=== PATIENT | male | born 1955 | race Hispanic/Latino ===

== ENCOUNTER 2017-06-13 17:58 | Inpatient (IN) | payer MEDICARE ==
[2017-06-13 18:09] VITALS: BMI 22.0
--- NOTE | 2017-06-13 18:22 | ED PDOC ---
Arrival/HPI - General Time Seen by Provider: 06/13/17 18:05 Historian: Patient - History of Present Illness Narrative History of Present Illness (Text): 06/13/17 18:20 A 61 year old male, whose past medical history includes coronary artery disease with history of UT, history of smoking, history of AAA, visiting from [place], presents to the emergency department complaining of hematuria and chest pain. Patient reports blood in urine that developed yesterday and burning sensation, urinary frequency since today. States bloody urine has become more pronounced and at times has difficulty voiding fully. Reports lower abdominal pain, worse when attempting to urinate. Denies hematemesis. Denies melena or dark or bloody stool. Denies testicular pain or swelling. States he developed chest pain with exertion today, radiating down left arm and associated with some shortness of breath. Pain now resolved in chest. Denies acute upper or lower back pain. Denies numbness or tingling to arms or legs. Time/Duration: 24 hours Symptom Onset: Sudden Symptom Course: Unchanged, Resolved Activities at Onset: Rest Context: Home Past Medical History - Provider Review Nursing Documentation Reviewed: Yes Family/Social History - Physician Review Nursing Documentation Reviewed: Yes Family/Social History: No Known Family HX Allergies/Home Meds Allergies/Adverse Reactions: Allergies No Known Allergies Allergy (Verified 06/13/17 18:09) Home Medications: Home Meds Medication Instructions Recorded Confirmed Acetaminophen/Oxycodone Hydr 1 tab PO Q8H PRN 06/13/17 06/13/17 [Percocet 10/325 mg Tab] Alprazolam [Xanax] 0.5 mg PO TID PRN 06/13/17 06/13/17 Clopidogrel [Plavix] 75 mg PO DAILY 06/13/17 06/13/17 Lisinopril [Zestril] 10 mg PO DAILY 06/13/17 06/13/17 Metoprolol Succinate 50 mg PO DAILY 06/13/17 06/13/17 Oxymorphone HCl [Opana ER] 20 mg PO Q12H 06/13/17 06/13/17 Pregabalin [Lyrica] 150 mg PO BID 06/13/17 06/13/17 Simvastatin 80 mg PO HS 06/13/17 06/13/17 Review of Systems - Physician Review All systems were reviewed & negative as marked: Yes - Review of Systems Constitutional: absent: Fevers Eyes: absent: Vision Changes ENT: absent: Hearing Changes, Sore Throat, Rhinorrhea Respiratory: SOB, Cough. absent: Wheezing Cardiovascular: Chest Pain (currently resolved), JOHN. absent: Calf Pain Gastrointestinal: Abdominal Pain. absent: Hematochezia, Hematemesis Genitourinary Male: Dysuria, Frequency, Hematuria, Urinary Output Changes Musculoskeletal: Neck Pain Neurological: absent: Headache, Dizziness, Focal Weakness Endocrine: absent: Polyuria Hemo/Lymphatic: absent: Easy Bleeding Psychiatric: absent: Depression, Suicidal Ideation Physical Exam - Physical Exam Narrative Physical Exam (Text): 06/13/17 18:19 Head: Atraumatic. Normocephalic. Eyes: PERRL. EOMI. Conjunctivae are not pale. ENT: Mucous membranes are moist and intact. Oropharynx is clear and symmetric. Neck: Supple. Full ROM. No JVD. No lymphadenopathy. Cardiovascular: Regular rate. Regular rhythm. Systolic murmur. Distal pulses are 2+ and symmetric. Pulmonary/Chest: No evidence of respiratory distress. Clear to auscultation bilaterally. No wheezing, rales or rhonchi. Abdominal: Soft with mild suprapubic distension. No pulsatile masses. No focal rebound or guarding. Strong and equal femoral pulses bilaterally. Back: No CVA tenderness. Mild paraspinal tenderness. Extremities: No edema. No cyanosis. No clubbing. Full range of motion in all extremities. No calf tenderness. Genitourinary: no penile lesions, no testicular pain or swelling. Rectal: no gross bleeding Skin: Skin is warm and dry. No petechiae. No purpura. Neurological: Alert, awake, and oriented to person, place, time, and situation. Normal speech. Motor and sensory exam intact. Psychiatric: Good eye contact. Normal interaction, affect, and behavior. Patient smells of smoke. Vital Signs Reviewed: Yes Vital Signs Temp Pulse Resp BP Pulse Ox 06/13/17 22:00 84 16 124/72 99 06/13/17 20:00 98.4 F 88 18 128/64 99 06/13/17 18:15 98.0 F 06/13/17 18:10 97 H 19 122/56 L 96 Pulse: Regular Respiratory Rate: Normal Appearance: Positive for: Well-Appearing, Non-Toxic, Uncomfortable Pain Distress: Mild Mental Status: Positive for: Alert and Oriented X 3 Medical Decision Making ED Course and Treatment: 06/13/17 18:18 Impression: A 61 year old male with hematuria and chest pain. Differential Diagnosis included but are not limited to: UTI vs. urinary retention vs. UT vs. kidney stones Plan: -- EKG -- chest xray -- CT abd/pelvis -- labs -- Urinalysis -- Reassess and disposition Progress Notes: Patient has no prior past records available at [facility]. Patient states he is visiting family and his physician are in [place]. He reports that has prior history of "heart attacks" as well as history of chronic neck and back pain, and also states history of a AAA repair several years ago. On initial exam, he states chest pain has resolved. He is not tachycardic or hypotensive. No pulsatile masses noted on abdominal exam, although mild suprapubic pain noted. His urine is grossly bloody, he reports incomplete voiding. CT abdomen/ ordered to assess ? renal colic, cystitis, pyelonephritis. He is afebrile, initial lactate on WBC unremarkable. His chest pain has resolved. At this time awaiting CT results. Will at this time admit to telemetry for chest pain, cardiac history. Patient with no PMD here at [facility], will admit to hospitalist service. CT Abdomen and Pelvis Without Intravenous Contrast IMPRESSION: 1. There is fullness of the left renal collecting system/mild hydronephrosis. There is distal left hydroureter. No obstructing ureteral calculus is identified. There is mild prominence of the distal right ureter. 2. There is abnormal density within the bladder, concerning for hemorrhage or mass. There is stranding of the soft tissue surrounding the bladder, suggestive of cystitis. Further clinical evaluation is recommended. 3. The prostate is enlarged. 4. There is aneurysmal dilatation of the abdominal aorta and bilateral common iliac arteries. An aortobiiliac stent graft is identified. 5. Hypodense left adrenal nodules are identified, suggestive of adenomas. Hypodense right adrenal nodules are also visualized. 6. A calcification is identified at the base of the penis, which appears to be superior to the corpus spongiosum/ureter. 7. Hepatomegaly. 8. Nodular consolidations are identified within the right lung base. These findings are suggestive of rounded atelectasis, although additional pathology cannot be excluded. There is right pleural thickening. Correlation with prior studies is recommended, with follow-up CT imaging. 9. Incidental/non-acute findings are described above. Dictated and Authenticated by: Izaiah Van MD 06/13/2017 9:26 PM Eastern Time ([place] & [place]) Given CT findings, cannot exclude bladder mass or hemorrhage, ddx includes cystitis, bladder disease/infection. Remains cv stable at this time, blood pressure stable. Afebrile. Lactate unremarkable initially. Suspect also component of prostate disease. 06/13/17 22:04 Symptoms and presentation and abnormal CT findings were discussed with Dr. Chip Pierre, covering for listed on-call urologist. He will evaluate patient during admission. - Lab Interpretations Microbiology Results: Microbiology Results 06/13/17 19:50 Blood Blood Culture - Final NO GROWTH AFTER 5 DAYS 06/13/17 19:50 Blood Gram Stain - Final TEST NOT PERFORMED 06/13/17 20:17 Urine Urine Culture - Final <10,000 CFU/ML. MULTIPLE SPECIES. PROBABLE CONTAMINATION. Lab Results: 06/13/17 18:30 06/13/17 18:30 Lab Results 06/13/17 20:17: Urine Color Red, Urine Appearance Turbid, Urine pH 6.5, Ur Specific [place] 1.025, Urine Protein >=300 H, Urine Glucose (UA) Negative, Urine Ketones Negative, Urine Blood Large H, Urine Nitrate Positive H, Urine Bilirubin Negative, Urine Urobilinogen 1.0 H, Ur Leukocyte Esterase Moderate H, Urine RBC Tntc, Urine WBC 0 - 2, Ur Epithelial Cells 3 - 4 06/13/17 19:56: pO2 56 H, VBG pH 7.37, VBG pCO2 50.0, VBG HCO3 28.9 H, VBG Total CO2 30.4 H, VBG O2 Sat (Calc) 92.5 H, VBG Base Excess 2.7 H, VBG Potassium 3.6, Glucose 110, Lactate 0.8, FiO2 21.0, Sodium 138.0, Chloride 104.0 , Venous Blood Potassium 3.6 06/13/17 19:00: PT 14.2 H, INR 1.30 H, APTT 35.5 06/13/17 18:30: Hemoglobin A1c 6.0 06/13/17 18:30: Triglycerides 108, Cholesterol 108 L, LDL Cholesterol Direct 56 , HDL Cholesterol 35 06/13/17 18:30: Sodium 140, Potassium 3.8, Chloride 104, Carbon Dioxide 26, Anion Gap 14, BUN 11, Creatinine 0.8, Est GFR ( Amer) > 60, Est GFR (Non- Af Amer) > 60, Random Glucose 125 H, Calcium 9.2, Total Bilirubin 0.7, AST 22, ALT 24, Alkaline Phosphatase 85, Lactate Dehydrogenase 370, Total Creatine Kinase 47, Troponin I < 0.01, Total Protein 7.1, Albumin 4.0, Globulin 3.1, Albumin/Globulin Ratio 1.3 06/13/17 18:30: WBC 10.8, RBC 4.23, Hgb 14.1, Hct 40.8 L, MCV 96.5, MCH 33.3, MCHC 34.6, RDW 15.8 H, Plt Count 305, MPV 9.4, Gran % 78.1 H, Lymph % (Auto) 10.9 L, [place] % (Auto) 10.3 H, Eos % (Auto) 0.5 L, Baso % (Auto) 0.2, Gran # 8.46 H, Lymph # 1.2, [place] # 1.1 H, Eos # 0.1, Baso # 0.02 I have reviewed the lab results: Yes - RAD Interpretation Radiology Orders: 06/13/17 18:16 ABD & PELVIS W/O PO OR IV CONT [CT] Stat CHEST PORTABLE [RAD] Stat - EKG Interpretation Interpreted by ED Physician: Yes Type: 12 lead EKG - Medication Orders Current Medication Orders: Alprazolam (Xanax) 0.5 mg PO TID PRN; Protocol PRN Reason: Anxiety Last Admin: 06/16/17 09:16 Dose: 0.5 mg Behavioural Document 06/16/17 09:16 JFSelma (Rec: 06/16/17 09:16 ADNREIA [id number]) Maintenance Maintenance Dose No Nonmedicinal Nonmedicinal Interventions Therapeutic Communication Behavior Behavior for Medication: Anxiety Re-Assess: Reassess Psych Meds Document 06/16/17 10:16 JFSelma (Rec: 06/16/17 10:55 JFR [id number]) Reassess Psych Med Effective Diphenhydramine HCl (Benadryl) 50 mg IVP Q4H PRN PRN Reason: Anxiety Last Admin: 06/20/17 04:35 Dose: 50 mg IVP Administration Document 06/20/17 04:35 KOPPS (Rec: 06/20/17 04:36 KOPPS [place] [id number]) Charges for Administration # of IVP Administrations 1 Hydromorphone HCl (Dilaudid) 2 mg IVP Q4H PRN PRN Reason: Pain, severe (8-10) Stop: 06/22/17 07:09 Last Admin: 06/20/17 10:24 Dose: 2 mg MAR Pain Assessment Document 06/20/17 10:24 DC (Rec: 06/20/17 10:24 DC [place] [id number]) Pain Reassessment Is this a pain reassessment? Yes Presence of Pain Presence of Pain Yes Pain Scale Used Pain Scale Used Numeric Description Pain not relieved and LIP/MD was Yes: as per dr Hubbard, give notified dose early IVP Administration Document 06/20/17 10:24 DC (Rec: 06/20/17 10:24 DC [place] [id number]) Charges for Administration # of IVP Administrations 1 Ceftriaxone Sodium (Rocephin 1 Gram Ivpb) 1 gm in 100 mls @ 100 mls/hr IVPB DAILY KYLE PRN Reason: Protocol Last Admin: 06/20/17 09:34 Dose: 100 mls/hr eMAR Start Stop Document 06/20/17 09:34 DC (Rec: 06/20/17 09:34 DC [id number]) Intravenous Solution Start Date 06/20/17 Start Time 09:34 Sodium Chloride (Sodium Chloride 0.9%) 1,000 mls @ 100 mls/hr IV .Q10H KYLE Last Admin: 06/20/17 08:40 Dose: 100 mls/hr eMAR Start Stop Document 06/20/17 08:40 KOPPS (Rec: 06/20/17 08:41 KOPPS [id number]) Intravenous Solution Start Date 06/20/17 Start Time 03:00 Lidocaine HCl (Xylocaine 2%) 0 ea TOP Q4H PRN PRN Reason: BLEEDING/PAIN Last Admin: 06/17/17 05:24 Dose: 1 applic Lisinopril (Zestril) 10 mg PO DAILY KYLE Last Admin: 06/20/17 09:33 Dose: 10 mg Metoprolol Succinate (Toprol Xl) 50 mg PO DAILY [facility] Last Admin: 06/20/17 09:33 Dose: 50 mg [facility] Pulse and Blood Pressure Document 06/20/17 09:33 DC (Rec: 06/20/17 09:34 [id number]) Blood Pressure Blood Pressure (100/60-150/90) 130/84 Ondansetron HCl (Zofran Inj) 4 mg IVP ONCE PRN PRN Reason: Nausea/Vomiting Oxycodone HCl (Oxycontin Extended Release Tab) 20 mg PO Q12 [facility] Last Admin: 06/19/17 21:02 Dose: 20 mg MAR Pain Assessment Document 06/19/17 21:02 KOPPS (Rec: 06/19/17 21:02 KOPPS [id number]) Pain Reassessment Is this a pain reassessment? No Sleep Is patient sleeping during reassessment? No Presence of Pain Presence of Pain Yes Pain Scale Used Pain Scale Used Numeric Location Left, Right or Bilateral Bilateral Upper or Lower Lower Pain Location Body Site Groin Back Sacrum Description Description Constant Intensity of Pain at present 7 Acceptable Level of Pain 4 Variations/Patterns on and off Pain Behavior Moaning Restlessness Facial Grimacing Screaming Alleviating Factors/Management Medication Techniques Alleviating Factors Medication Re-Assess: [facility] Pain Assessment Document 06/19/17 22:02 KOPPS (Rec: 06/20/17 01:34 KOPPS [id number]) Pain Reassessment Is this a pain reassessment? Yes Sleep Is patient sleeping during reassessment? No Presence of Pain Presence of Pain No Pain Scale Used Pain Scale Used Numeric Pantoprazole Sodium (Protonix Inj) 40 mg IVP DAILY [facility] Last Admin: 06/20/17 09:34 Dose: 40 mg IVP Administration Document 06/20/17 09:34 DC (Rec: 06/20/17 09:34 [id number]) Charges for Administration # of IVP Administrations 1 Phenazopyridine HCl (Pyridium) 200 mg PO PC [facility] Last Admin: 06/20/17 09:34 Dose: 200 mg Polyethylene Glycol (Miralax) 17 gm PO DAILY [facility] Last Admin: 06/20/17 09:34 Dose: 17 gm Pregabalin (Lyrica) 150 mg PO BID [facility] Last Admin: 06/20/17 09:34 Dose: 150 mg Tamsulosin HCl (Flomax) 0.4 mg PO DAILY [facility] Last Admin: 06/20/17 09:34 Dose: 0.4 mg Discontinued Medications Atorvastatin Calcium (Lipitor) 80 mg PO HS [facility] Last Admin: 06/14/17 21:13 Dose: 80 mg Diphenhydramine HCl (Benadryl) 50 mg IVP Q4H PRN PRN Reason: Allergy symptoms Last Admin: 06/16/17 09:15 Dose: 50 mg IVP Administration Document 06/16/17 09:15 JFR (Rec: 06/16/17 09:15 JFR [id number]) Charges for Administration # of IVP Administrations 1 Hydromorphone HCl (Dilaudid) 1 mg IVP STAT STA Stop: 06/14/17 01:33 Last Admin: 06/14/17 01:51 Dose: 1 mg MAR Pain Assessment Document 06/14/17 01:51 SRE (Rec: 06/14/17 01:51 SRE [id number]) Pain Reassessment Is this a pain reassessment? No Sleep Is patient sleeping during reassessment? No Presence of Pain Presence of Pain Yes Pain Scale Used Pain Scale Used Numeric Description Description Burning Intensity of Pain at present 10 IVP Administration Document 06/14/17 01:51 SRE (Rec: 06/14/17 01:51 SRE [id number]) Charges for Administration # of IVP Administrations 1 Re-Assess: MAR Pain Assessment Document 06/14/17 02:51 SRE (Rec: 06/14/17 03:46 SRE [id number]) Pain Reassessment Is this a pain reassessment? Yes Sleep Is patient sleeping during reassessment? No Presence of Pain Presence of Pain Yes Pain Scale Used Pain Scale Used Numeric Description Intensity of Pain at present 8 Pain Behavior Moaning Hydromorphone HCl (Dilaudid) 1 mg IVP STAT STA Stop: 06/14/17 04:34 Last Admin: 06/14/17 04:43 Dose: 1 mg MAR Pain Assessment Document 06/14/17 04:43 SRE (Rec: 06/14/17 04:43 SRE [id number]) Pain Reassessment Is this a pain reassessment? No Sleep Is patient sleeping during reassessment? No Presence of Pain Presence of Pain Yes Pain Scale Used Pain Scale Used Numeric Description Description Burning Intensity of Pain at present 8 IVP Administration Document 06/14/17 04:43 SRE (Rec: 06/14/17 04:43 SRE [id number]) Charges for Administration # of IVP Administrations 1 Hydromorphone HCl (Dilaudid) 4 mg IVP ONCE ONE Stop: 06/14/17 06:15 Last Admin: 06/14/17 06:22 Dose: 4 mg MAR Pain Assessment Document 06/14/17 06:22 SRE (Rec: 06/14/17 06:23 SRE [place] [id number]) Pain Reassessment Is this a pain reassessment? No Sleep Is patient sleeping during reassessment? No Presence of Pain Presence of Pain Yes IVP Administration Document 06/14/17 06:22 SRE (Rec: 06/14/17 06:23 SRE [place] [id number]) Charges for Administration # of IVP Administrations 1 Hydromorphone HCl (Dilaudid) 1 mg IVP Q4H PRN PRN Reason: Pain, severe (8-10) Last Admin: 06/14/17 20:29 Dose: 1 mg MAR Pain Assessment Document 06/14/17 20:29 KOPPS (Rec: 06/14/17 20:31 KOPPS [id number]) Pain Reassessment Is this a pain reassessment? No Sleep Is patient sleeping during reassessment? No Presence of Pain Presence of Pain Yes Pain Scale Used Pain Scale Used Numeric Location Left, Right or Bilateral Bilateral Upper or Lower Lower Pain Location Body Site Groin Back Sacrum Description Description Intermittent Intensity of Pain at present 10 Variations/Patterns on and off Pain Behavior Restlessness Screaming Alleviating Factors/Management Medication Techniques Alleviating Factors Medication IVP Administration Document 06/14/17 20:29 KOPPS (Rec: 06/14/17 20:31 KOPPS [id number]) Charges for Administration # of IVP Administrations 1 Re-Assess: MAR Pain Assessment Document 06/14/17 21:29 KOPPS (Rec: 06/14/17 22:31 KOPPS [id number]) Pain Reassessment Is this a pain reassessment? Yes Sleep Is patient sleeping during reassessment? No Presence of Pain Presence of Pain No Hydromorphone HCl (Dilaudid) 1 mg IVP Q4H PRN PRN Reason: Pain, severe (8-10) Last Admin: 06/15/17 14:46 Dose: 1 mg [facility] Pain Assessment Document 06/15/17 14:46 (Rec: 06/15/17 14:47 [place] [id number]) Pain Reassessment Is this a pain reassessment? No Presence of Pain Presence of Pain Yes Pain Scale Used Pain Scale Used Numeric Location Pain Location Body Site Groin Description Description Intermittent Intensity of Pain at present 9 Pain Behavior Moaning Guarding Facial Grimacing Alleviating Factors/Management Medication Techniques IVP Administration Document 06/15/17 14:46 (Rec: 06/15/17 14:47 [place] [id number]) Charges for Administration # of IVP Administrations 1 Re-Assess: [facility] Pain Assessment Document 06/15/17 15:46 (Rec: 06/15/17 17:16 [id number] Pain Reassessment Is this a pain reassessment? Yes Presence of Pain Presence of Pain Yes Pain Scale Used Pain Scale Used Numeric Description Description Intermittent Intensity of Pain at present 8 Hydromorphone HCl (Dilaudid) 1.25 mg IVP Q4H PRN PRN Reason: Pain, severe (8-10) Hydromorphone HCl (Dilaudid) 1.25 mg IVP Q4H PRN PRN Reason: Pain, severe (8-10) Last Admin: 06/16/17 08:19 Dose: 1.25 mg [facility] Pain Assessment Document 06/16/17 08:19 JFR (Rec: 06/16/17 08:19 R [id number]) Pain Reassessment Is this a pain reassessment? No Presence of Pain Presence of Pain Yes Pain Scale Used Pain Scale Used Numeric Description Intensity of Pain at present 8 IVP Administration Document 06/16/17 08:19 JFR (Rec: 06/16/17 08:19 JFR [id number]) Charges for Administration # of IVP Administrations 1 Re-Assess: [facility] Pain Assessment Document 06/16/17 09:19 JFR (Rec: 06/16/17 09:46 R [id number]) Pain Reassessment Is this a pain reassessment? Yes Sleep Is patient sleeping during reassessment? Yes Hydromorphone HCl (Dilaudid) 1.25 mg IVP Q4H PRN PRN Reason: Pain, severe (8-10) Last Admin: 06/16/17 16:41 Dose: 1.25 mg [facility] Pain Assessment Document 06/16/17 16:41 JFR (Rec: 06/16/17 16:41 JFR [id number]) Pain Reassessment Is this a pain reassessment? No IVP Administration Document 06/16/17 16:41 JFR (Rec: 06/16/17 16:41 JFR [id number]) Charges for Administration # of IVP Administrations 1 Re-Assess: [facility] Pain Assessment Document 06/16/17 17:41 JFR (Rec: 06/16/17 18:59 J[id number] Pain Reassessment Is this a pain reassessment? Yes Sleep Is patient sleeping during reassessment? Yes Hydromorphone HCl (Dilaudid) 2 mg IVP Q4H PRN PRN Reason: Pain, severe (8-10) Last Admin: 06/17/17 18:30 Dose: 2 mg Re-Assess: [facility] Pain Assessment Document 06/17/17 19:30 FG (Rec: 06/18/17 05:07 FG [id number]) Pain Reassessment Is this a pain reassessment? Yes Sleep Is patient sleeping during reassessment? No Presence of Pain Presence of Pain Yes Pain Scale Used Pain Scale Used Numeric Location Upper or Lower Lower Pain Location Body Site Abdomen Description Pain Behavior Screaming Alleviating Factors/Management Medication Techniques Pain not relieved and LIP/MD was Yes notified Hydromorphone HCl (Dilaudid) 2 mg IVP Q4H PRN PRN Reason: Pain, severe (8-10) Last Admin: 06/19/17 07:01 Dose: 2 mg [facility] Pain Assessment Document 06/19/17 07:01 SRE (Rec: 06/19/17 07:02 SRE [id number]) Pain Reassessment Is this a pain reassessment? No Sleep Is patient sleeping during reassessment? No Presence of Pain Presence of Pain Yes Pain Scale Used Pain Scale Used Numeric Location Pain Location Body Site Abdomen Groin Description Description Intermittent Intensity of Pain at present 9 Pain Behavior Moaning Irritability Screaming IVP Administration Document 06/19/17 07:01 SRE (Rec: 06/19/17 07:02 SRE [place] [id number]) Charges for Administration # of IVP Administrations 1 Hydromorphone HCl (Dilaudid) 2 mg IVP Q15M PRN PRN Reason: Pain, severe (8-10) Stop: 06/17/17 20:10 Last Admin: 06/17/17 18:15 Dose: 2 mg Re-Assess: [facility] Pain Assessment Document 06/17/17 19:15 FG (Rec: 06/18/17 05:07 FG [id number]) Pain Reassessment Is this a pain reassessment? Yes Sleep Is patient sleeping during reassessment? No Presence of Pain Presence of Pain Yes Pain Scale Used Pain Scale Used Numeric Location Upper or Lower Lower Pain Location Body Site Abdomen Description Description Sharp Intensity of Pain at present 10 Pain Behavior Screaming Alleviating Factors/Management Medication Techniques Pain not relieved and LIP/MD was Yes notified Hydromorphone HCl (Dilaudid) 2 mg IVP Q4H PRN PRN Reason: Pain, severe (8-10) Last Admin: 06/19/17 23:06 Dose: 2 mg [facility] Pain Assessment Document 06/19/17 23:06 RAZIAS (Rec: 06/19/17 23:07 KOS [id number]) Pain Reassessment Is this a pain reassessment? No Sleep Is patient sleeping during reassessment? No Presence of Pain Presence of Pain Yes Pain Scale Used Pain Scale Used Numeric Location Left, Right or Bilateral Bilateral Upper or Lower Lower Pain Location Body Site Groin Back Sacrum Description Description Intermittent Intensity of Pain at present 8 Acceptable Level of Pain 4 Variations/Patterns while urinaing Pain Behavior Facial Grimacing Screaming Aggravating Factors ADL's Changing Position Exercise/Activity Alleviating Factors/Management Medication Techniques Alleviating Factors Medication IVP Administration Document 06/19/17 23:06 OLGA (Rec: 06/19/17 23:07 MARIIS [id number]) Charges for Administration # of IVP Administrations 1 Re-Assess: [facility] Pain Assessment Document 06/20/17 00:06 RAZIAS (Rec: 06/20/17 01:34 KOPPS [id number]) Pain Reassessment Is this a pain reassessment? Yes Sleep Is patient sleeping during reassessment? No Presence of Pain Presence of Pain No Pain Scale Used Pain Scale Used Numeric Hydromorphone HCl (Dilaudid) 2 mg IVP Q4H PRN PRN Reason: Pain, severe (8-10) Last Admin: 06/20/17 03:27 Dose: 2 mg [facility] Pain Assessment Document 06/20/17 03:27 KOS (Rec: 06/20/17 03:28 [id number] Pain Reassessment Is this a pain reassessment? No Sleep Is patient sleeping during reassessment? No Presence of Pain Presence of Pain Yes Pain Scale Used Pain Scale Used Numeric Location Left, Right or Bilateral Bilateral Upper or Lower Lower Pain Location Body Site Groin Back Sacrum Description Description Intermittent Intensity of Pain at present 9 Acceptable Level of Pain 4 Variations/Patterns while urinating Pain Behavior Facial Grimacing Aggravating Factors ADL's Changing Position Exercise/Activity Alleviating Factors/Management Medication Techniques Alleviating Factors Medication IVP Administration Document 06/20/17 03:27 KOS (Rec: 06/20/17 03:28 [id number] Charges for Administration # of IVP Administrations 1 Re-Assess: [facility] Pain Assessment Document 06/20/17 04:27 KOS (Rec: 06/20/17 05:24 [id number]) Pain Reassessment Is this a pain reassessment? Yes Sleep Is patient sleeping during reassessment? No Presence of Pain Presence of Pain No Pain Scale Used Pain Scale Used Numeric Hydromorphone HCl (Dilaudid) 1 mg IVP STAT STA Stop: 06/20/17 09:42 Last Admin: 06/20/17 10:24 Dose: Ceftriaxone Sodium (Rocephin 1 Gram Ivpb) 1 gm in 100 mls @ 200 mls/hr IVPB ONCE STA PRN Reason: Protocol Stop: 06/13/17 20:57 Last Admin: 06/13/17 21:00 Dose: 200 mls/hr eMAR Start Stop Document 06/13/17 21:00 AMAYA (Rec: 06/13/17 21:00 AMAYA [id number]) Intravenous Solution Start Date 06/13/17 Start Time 21:00 End Date 06/13/17 End time 21:30 Total Infusion Time 30 Potassium Chloride (Potassium Chloride 20 Meq/100 Ml) 20 meq in 100 mls @ 50 mls/hr IVPB Q2H KYLE Stop: 06/15/17 11:29 Last Admin: 06/15/17 13:33 Dose: 50 mls/hr eMAR Start Stop Document 06/15/17 13:33 DH (Rec: 06/15/17 13:33 DH [place] [id number]) Intravenous Solution Start Date 06/15/17 Start Time 13:33 Lactated Ringer's (Lactated Ringer's) 1,000 mls @ 75 mls/hr IV .[id number] [facility] Stop: 06/17/17 20:16 Last Admin: 06/17/17 20:24 Dose: 75 mls/hr eMAR Start Stop Document 06/17/17 20:24 FG (Rec: 06/17/17 20:24 FG [place] [id number]) Intravenous Solution Start Date 06/17/17 Start Time 20:24 Lidocaine HCl (Xylocaine 2% (Uro-Jet)) 0 ea TOP Q4H PRN PRN Reason: BLEEDING/PAIN Lisinopril (Zestril) 10 mg PO DAILY [facility] Last Admin: 06/15/17 10:22 Dose: 10 mg MAR Pulse and Blood Pressure Document 06/15/17 10:22 DH (Rec: 06/15/17 10:23 [place] [id number]) Pulse Pulse Rate (60-90) 81 Blood Pressure Blood Pressure (100/60-150/90) 121/60 Lisinopril (Zestril) 10 mg PO DAILY [facility] Last Admin: 06/16/17 09:16 Dose: 10 mg MAR Pulse and Blood Pressure Document 06/16/17 09:16 JFR (Rec: 06/16/17 09:16 JFR [place] [id number]) Pulse Pulse Rate (60-90) 76 Blood Pressure Blood Pressure (100/60-150/90) 122/73 Metoprolol Succinate (Toprol Xl) 50 mg PO DAILY [facility] Last Admin: 06/15/17 10:31 Dose: 50 mg MAR Pulse and Blood Pressure Document 06/15/17 10:31 DH (Rec: 06/15/17 10:32 [place] [id number]) Pulse Pulse Rate (60-90) 81 Blood Pressure Blood Pressure (100/60-150/90) 121/60 Metoprolol Succinate (Toprol Xl) 50 mg PO DAILY [facility] Last Admin: 06/16/17 09:16 Dose: 50 mg MAR Pulse and Blood Pressure Document 06/16/17 09:16 JFR (Rec: 06/16/17 09:16 R [place] [id number]) Pulse Pulse Rate (60-90) 76 Blood Pressure Blood Pressure (100/60-150/90) 122/73 Morphine Sulfate (Morphine) 2 mg IVP Q4 PRN PRN Reason: Pain, severe (8-10) Last Admin: 06/13/17 22:27 Dose: 2 mg STELLA Pain Assessment Document 06/13/17 22:27 AMAYA (Rec: 06/13/17 22:27 AMAYA [id number]) Pain Reassessment Is this a pain reassessment? No IVP Administration Document 06/13/17 22:27 AMAYA (Rec: 06/13/17 22:27 AMAYA [id number]) Charges for Administration # of IVP Administrations 1 Re-Assess: [facility] Pain Assessment Document 06/13/17 23:27 SRE (Rec: 06/14/17 00:49 SRE [id number]) Pain Reassessment Is this a pain reassessment? Yes Sleep Is patient sleeping during reassessment? No Presence of Pain Presence of Pain Yes Pain Scale Used Pain Scale Used Numeric Description Description Burning Intensity of Pain at present 10 Pain Behavior Guarding Irritability Facial Grimacing Screaming Pain not relieved and LIP/MD was Yes: biomedical equipment specialist will notified call back Morphine Sulfate (Morphine) 2 mg IVP ONCE STA Stop: 06/15/17 00:42 Last Admin: 06/15/17 00:56 Dose: 2 mg [facility] Pain Assessment Document 06/15/17 00:56 KOPPS (Rec: 06/15/17 00:57 KOPPS [id number]) Pain Reassessment Is this a pain reassessment? No Sleep Is patient sleeping during reassessment? No Presence of Pain Presence of Pain Yes Pain Scale Used Pain Scale Used Numeric Location Left, Right or Bilateral Bilateral Upper or Lower Lower Pain Location Body Site Groin Back Sacrum Description Intensity of Pain at present 10 Acceptable Level of Pain 4 Variations/Patterns on and off Pain Behavior Restlessness Facial Grimacing Screaming Aggravating Factors ADL's Changing Position Exercise/Activity Alleviating Factors/Management Medication Techniques Alleviating Factors Medication IVP Administration Document 06/15/17 00:56 KOPPS (Rec: 06/15/17 00:57 KOPPS [id number]) Charges for Administration # of IVP Administrations 1 Re-Assess: [facility] Pain Assessment Document 06/15/17 01:56 KOPPS (Rec: 06/15/17 03:06 MARIIS [id number]) Pain Reassessment Is this a pain reassessment? Yes Sleep Is patient sleeping during reassessment? No Presence of Pain Presence of Pain No Pain Scale Used Pain Scale Used Numeric Morphine Sulfate (Morphine) 2 mg IVP Q4H PRN PRN Reason: Pain, severe (8-10) Last Admin: 06/15/17 05:30 Dose: 2 mg [facility] Pain Assessment Document 06/15/17 05:30 KOPPS (Rec: 06/15/17 05:31 KOS [id number]) Pain Reassessment Is this a pain reassessment? No Sleep Is patient sleeping during reassessment? No Presence of Pain Presence of Pain Yes Pain Scale Used Pain Scale Used Numeric Location Upper or Lower Lower Pain Location Body Site Groin Back Sacrum Description Description Intermittent Intensity of Pain at present 10 Acceptable Level of Pain on and off Pain Behavior Restlessness Facial Grimacing Screaming Alleviating Factors/Management Medication Techniques Alleviating Factors Medication IVP Administration Document 06/15/17 05:30 MARIIMelvin (Rec: 06/15/17 05:31 MARIIS [id number]) Charges for Administration # of IVP Administrations 1 Re-Assess: [facility] Pain Assessment Document 06/15/17 06:30 MARIIPPS (Rec: 06/15/17 06:42 MARIIS [id number]) Pain Reassessment Is this a pain reassessment? Yes Sleep Is patient sleeping during reassessment? No Presence of Pain Presence of Pain No Pain Scale Used Pain Scale Used Numeric Phenazopyridine HCl (Pyridium) 200 mg PO STAT STA Stop: 06/14/17 07:12 Last Admin: 06/14/17 07:49 Dose: 200 mg Potassium Chloride (K-Dur 20 Meq Er Tab) 40 meq PO ONCE ONE Stop: 06/16/17 09:46 Last Admin: 06/16/17 10:41 Dose: 40 meq Potassium Chloride (K-Dur 20 Meq Er Tab) 40 meq PO STAT STA Stop: 06/18/17 11:28 Last Admin: 06/18/17 11:36 Dose: 40 meq Potassium Chloride (Klor-Con 10) 40 meq PO BRK ONE Stop: 06/18/17 16:01 Last Admin: 06/18/17 16:56 Dose: 40 meq Potassium Chloride (K-Dur 20 Meq Er Tab) 40 meq PO STAT STA Stop: 06/19/17 07:31 Last Admin: 06/19/17 08:14 Dose: 40 meq Potassium Chloride (K-Dur 20 Meq Er Tab) 40 meq PO STAT STA Stop: 06/20/17 09:32 - Scribe Statement The provider has reviewed the documentation as recorded by the Niki Teran Provider Scribe Attestation: All medical record entries made by the Niki were at my direction and personally dictated by me. I have reviewed the chart and agree that the record accurately reflects my personal performance of the history, physical exam, medical decision making, and the department course for this patient. I have also personally directed, reviewed, and agree with the discharge instructions and disposition. Disposition/Present on Arrival - Present on Arrival Any Indicators Present on Arrival: No - Disposition Have Diagnosis and Disposition been Completed?: Yes Diagnosis: Chest pain, Hematuria, Hydroureter, Cystitis Disposition: HOSPITALIZED Disposition Time: 21:06 Patient Plan: Admission, Telemetry Patient Problems: Current Active Problems Problem Status Onset Chest pain Acute Cystitis Acute Hematuria Acute Hydroureter Acute Condition: SERIOUS
[2017-06-13 18:50] LABS: BASO # 0.02 K/mm3 (0.0-2.0); BASO % 0.2 % (0.0-3.0); EOS # 0.1 (0.0-0.7); EOS % 0.5 % (1.5-5.0); GRAN # 8.46 (1.4-6.5); GRAN % 78.1 % (50.0-68.0); HEMATOCRIT 40.8 % (42.0-52.0); LYMPH # 1.2 (1.2-3.4); LYMPH % 10.9 % (22.0-35.0); MEAN CELL VOLUME 96.5 fl (80.0-105.0); MEAN CORPUSCULAR HEMOGLOBIN 33.3 pg (25.0-35.0); MEAN CORPUSCULAR HGB CONC 34.6 g/dl (31.0-37.0); MEAN PLATELET VOLUME 9.4 fl (7.0-11.0); MONO # 1.1 (0.1-0.6); MONO % 10.3 % (1.0-6.0); RED CELL DISTRIBUTION WIDTH 15.8 % (11.5-14.5); WHITE BLOOD COUNT 10.8 10^3/ul (4.5-11.0)
[2017-06-13 18:56] LABS: ALB/GLOB RATIO 1.3 (1.1-1.8); ALKALINE PHOSPHATASE 85 U/L (38-126); ALT/SGPT 24 U/L (7-56); AST/SGOT 22 U/L (17-59); BILIRUBIN,TOTAL 0.7 mg/dL (0.2-1.3); BLOOD UREA NITROGEN 11 mg/dL (7-21); CALCIUM 9.2 mg/dL (8.4-10.5); CARBON DIOXIDE 26 mmol/L (21-33); CHLORIDE 104 mmol/L (98-107); GFR AFRICAN-AMERICAN > 60; GLUCOSE,RANDOM 125 mg/dL (70-110); POTASSIUM 3.8 mmol/L (3.6-5.0); SODIUM 140 mmol/L (132-148); TOTAL PROTEIN 7.1 g/dL (5.8-8.3)
[2017-06-13 19:08] LABS: TROPONIN I < 0.01 ng/mL
[2017-06-13 19:13] LABS: INR 1.3 (0.93-1.08)
[2017-06-13 19:14] LABS: PARTIAL THROMBOPLASTIN TIME 35.5 Seconds (25.1-36.5)
[2017-06-13 20:08] LABS: VENOUS BLOOD GAS BASE EXCESS 2.7 mmol/L (0.0-2.0); VENOUS BLOOD PH 7.37 (7.32-7.43)
[2017-06-13 20:27] LABS: PH,URINE 6.5 (4.7-8.0); URINE APPEARANCE TURBID (CLEAR); URINE BILIRUBIN NEGATIVE (NEGATIVE); URINE BLOOD LARGE (NEGATIVE); URINE COLOR RED (YELLOW); URINE GLUCOSE (UA) NEGATIVE (NEGATIVE); URINE KETONE NEGATIVE (NEGATIVE); URINE LEUKOCYTE ESTERASE MODERATE Leu/uL (NEGATIVE); URINE PROTEIN >=300 mg/dL (<30 mg/dL)
[2017-06-13 20:28] LABS: URINE RBC TNTC /hpf (0-2)
[2017-06-13] MEDS ORDERED: cefTRIAXone 1 gm 1 GM/100 ML BAG IVPB STA (20:28)
[2017-06-13 20:29] LABS: URINE WBC 0 - 2 /hpf (0-6)
--- NOTE | 2017-06-13 21:26 | CT ---
EXAM: CT Abdomen and Pelvis Without Intravenous Contrast EXAM DATE/TIME: 06/13/2017 6:16 PM CLINICAL HISTORY: The patient age is 61 years old and is male; Pain; Abdominal pain; Flank; Other: Bilateral; Additional info: Hematuria, abdominal pain Facility exam id and description: Ct abdpelscon abd pelvis w/o po or iv cont TECHNIQUE: Axial computed tomography images of the abdomen and pelvis without intravenous contrast. All CT scans at this facility use one or more dose reduction techniques, viz.: automated exposure control; ma/kV adjustment per patient size (including targeted exams where dose is matched to indication; i.e. head); or iterative reconstruction technique. Coronal and sagittal reformatted images were created and reviewed. COMPARISON: No relevant prior studies available. FINDINGS: Lower thorax: Nodular consolidations are identified within the right lung base. These findings are suggestive of rounded atelectasis, although additional pathology cannot be excluded. There is right pleural thickening. ABDOMEN: Liver: The liver measures 18.9 cm in the craniocaudad dimension, consistent with hepatomegaly. No hepatic masses visualized. Gallbladder and bile ducts: No calcified stones. No ductal dilation. Pancreas: Normal contour. No ductal dilation. Spleen: No splenomegaly. Adrenals: Hypodense left adrenal nodules are identified, the largest measuring 2.2 x 1.6 cm. These nodules are suggestive of adenomas. Hypodense right adrenal nodules are also visualized. Kidneys and ureters: There is fullness of the left renal collecting system/mild hydronephrosis. There is distal left hydroureter. No obstructing ureteral calculus is identified. There is mild prominence of the distal right ureter. A calcification is identified at the base of the penis, which appears to be superior to the corpus spongiosum/ureter. There is no hydronephrosis of the right kidney. Stomach and bowel: Moderate fecal material is identified within the colon and rectum. No obstruction. Appendix: No findings to suggest acute appendicitis. PELVIS: Bladder: There is abnormal density within the bladder, concerning for hemorrhage or mass. There is stranding of the soft tissue surrounding the bladder. No stones. Reproductive: The prostate is enlarged. ABDOMEN and PELVIS: Intraperitoneal space: No free air. Bones/joints: Hypertrophic degenerative changes are noted within the spine. Soft tissues: There is a small fat containing umbilical hernia. Vasculature: There is aneurysmal dilatation of the abdominal aorta measuring 3.3 cm in diameter. There is aneurysmal dilatation of the bilateral common iliac arteries. The right common iliac artery measures 2.9 cm in diameter. An aortobiiliac stent graft is identified. A fem-fem bypass graft is identified. Lymph nodes: There is no significant retroperitoneal or intrapelvic lymphadenopathy. IMPRESSION: 1. There is fullness of the left renal collecting system/mild hydronephrosis. There is distal left hydroureter. No obstructing ureteral calculus is identified. There is mild prominence of the distal right ureter. 2. There is abnormal density within the bladder, concerning for hemorrhage or mass. There is stranding of the soft tissue surrounding the bladder, suggestive of cystitis. Further clinical evaluation is recommended. 3. The prostate is enlarged. 4. There is aneurysmal dilatation of the abdominal aorta and bilateral common iliac arteries. An aortobiiliac stent graft is identified. 5. Hypodense left adrenal nodules are identified, suggestive of adenomas. Hypodense right adrenal nodules are also visualized. 6. A calcification is identified at the base of the penis, which appears to be superior to the corpus spongiosum/ureter. 7. Hepatomegaly. 8. Nodular consolidations are identified within the right lung base. These findings are suggestive of rounded atelectasis, although additional pathology cannot be excluded. There is right pleural thickening. Correlation with prior studies is recommended, with follow-up CT imaging. 9. Incidental/non-acute findings are described above.
[2017-06-13 22:46] LABS: CHOLESTEROL 108 mg/dL (130-200)
--- NOTE | 2017-06-14 00:41 | CP.PCM.HP ---
<Dandy Acuña - Last Filed: 06/14/17 03:47> History of Present Illness - History of Present Illness History of Present Illness: This is a 61 year old male with the past medical history of nephrolithiasis, 3 myocardial infarction (s/p stents), hypertension, abdominal anuerysm (s/p 2 repair surgeries), who comes in complaining of gross hematuria in conjunction with chest pain and shortness of breath for the past day . The patient is also reporting burning pain upon urination that started in conjunction with the presenting symptoms. The patient denies any nausea, vomiting, changes in vision , sore throat, headaches, constipation, diarrhea, dizziness, or any other complaints. PMD: Dr.Lee June Past medical history: See hpi Medications:see MAR Surgical history:Disc fusion surgery Social history: 50 pack history . Denies alcohol or illicit drug use. Present on Admission - Present on Admission Any Indicators Present on Admission: No Review of Systems - Constitutional Constitutional: absent: Chills, Fever, Frequent Falls, Headache, Weight Loss, Weakness - EENT Eyes: absent: Blind Spots, Blurred Vision, Discharge, Irritation, Itchy Eyes, Loss of Peripheral Vision Ears: absent: Ear Discharge, Disequilibrium, Dizziness Nose/Mouth/Throat: absent: Nasal Congestion, Nasal Trauma, Nose Pain, Bleeding Gums, Dry Mouth, Dysphagia - Cardiovascular Cardiovascular: Chest Pain. absent: Claudication, Diaphoresis, Edema, Leg Edema , Lightheadedness, Palpitations, Paroxysmal Nocturnal Dyspnea, Pedal Edema, Slow Heart Rate, Syncope - Respiratory Respiratory: absent: Dyspnea, Hemoptysis, Pain on Inspiration, Chest Congestion - Gastrointestinal Gastrointestinal: absent: Abdominal Pain, Belching, Bloating, Change in Stool Character - Genitourinary Genitourinary: Change in Urinary Stream, Flank Pain, Hematuria. absent: Nocturia, Urinary Incontinence - Musculoskeletal Musculoskeletal: absent: Atrophy, Muscle Weakness, Myalgias, Neck Pain, Stiffness - Integumentary Integumentary: absent: Rash, Sores, Swelling, Wounds - Neurological Neurological: absent: Abnormal Hearing, Dizziness, Numbness, Frequent Falls, Headaches, Radicular Pain, Syncope - Psychiatric Psychiatric: absent: Change in Appetite, Confusion, Depression, Memory Loss, Panic Attacks - Endocrine Endocrine: absent: Polydipsia, Polyphagia, Polyuria - Hematologic/Lymphatic Hematologic: absent: Easy Bleeding, Easy Bruising Past Patient History - Past Social History Smoking Status: Heavy Smoker > 10 Cigarettes Daily - CARDIAC Hx Cardiac Disorders: Yes Hx Heart Attack: Yes (x3) Hx Hypertension: Yes - PULMONARY Hx Respiratory Disorders: No - NEUROLOGICAL Hx Neurological Disorder: No - HEENT Hx HEENT Problems: No - RENAL Hx Chronic Kidney Disease: Yes Hx Kidney Stones: Yes - ENDOCRINE/METABOLIC Hx Endocrine Disorders: No - HEMATOLOGICAL/ONCOLOGICAL Hx Blood Disorders: No - INTEGUMENTARY Hx Dermatological Problems: No - MUSCULOSKELETAL/RHEUMATOLOGICAL Hx Musculoskeletal Disorders: No - GASTROINTESTINAL Hx Gastrointestinal Disorders: No - GENITOURINARY/GYNECOLOGICAL Hx Genitourinary Disorders: No - PSYCHIATRIC Hx Psychophysiologic Disorder: Yes Hx Anxiety: Yes Hx Depression: Yes Hx Substance Use: No - SURGICAL HISTORY Hx Surgeries: Yes Hx Cardiac Catheterization: Yes Hx Coronary Stent: Yes Other/Comment: aneurysm with mesh - ANESTHESIA Hx Anesthesia: No Meds Allergies/Adverse Reactions: Allergies Allergy/AdvReac Type Severity Reaction Status Date / Time No Known Allergies Allergy Verified 06/13/17 18:09 Physical Exam - Head Exam Head Exam: ATRAUMATIC, NORMAL INSPECTION, NORMOCEPHALIC - Eye Exam Eye Exam: EOMI, Normal appearance, PERRL. absent: Periorbital swelling, Periorbital tenderness Pupil Exam: NORMAL ACCOMODATION, PERRL. absent: Irregular - ENT Exam ENT Exam: Mucous Membranes Moist, Normal Exam, Normal Oropharynx - Neck Exam Neck exam: Positive for: Normal Inspection. Negative for: Lymphadenopathy, Thyromegaly - Respiratory Exam Respiratory Exam: Clear to Auscultation Bilateral, NORMAL BREATHING PATTERN. absent: Chest Wall Tenderness, Prolonged Expiratory Phase, Respiratory Distress - Cardiovascular Exam Cardiovascular Exam: REGULAR RHYTHM, +S1, +S2 - GI/Abdominal Exam GI & Abdominal Exam: Normal Bowel Sounds, Tenderness. absent: Distended, Hypoactive Bowel Sounds, Pulsatile Mass - Extremities Exam Extremities exam: Positive for: normal inspection. Negative for: full ROM, pedal edema - Back Exam Back exam: NORMAL INSPECTION, paraspinal tenderness. absent: CVA tenderness (L) - Neurological Exam Neurological exam: Alert, CN II-XII Intact, Oriented x3 - Psychiatric Exam Psychiatric exam: Normal Affect, Normal Mood - Skin Skin Exam: Dry, Intact Results - Vital Signs Recent Vital Signs: Last Vital Signs Temp 98.0 F 06/13/17 18:15 Pulse 97 H 06/13/17 18:10 Resp 19 06/13/17 18:10 BP 122/56 L 06/13/17 18:10 Pulse Ox 96 06/13/17 18:10 - Labs Result Diagrams: 06/13/17 18:30 06/13/17 18:30 Assessment & Plan - Assessment and Plan (Free Text) Assessment: This is a 61 year old male with a past medical history of hypertension, 3 M.I., nephrolithiasis, abdominal aneurysm(s/p 2 surgeries) who presents with gross hematuria and chest pain. Plan: 1.Gross hematuria -H/o of nephrolithiasis. Patient reports flank pain radiating to the anterior abdomen. -Urology consulted. Will f/u with rec's -NPO. Aspirin held. IV fluids at 75 mls/hr. -Morphine IV for Pain management. 2.Chest pain. -No chest pain upon admission. -Troponin (-)x1. Trend troponins. -f/u with repeat EKG in the A.M. -Cardiology consulted. Will f/u with rec's. -TSH, A1C, Lipid panel ordered. Will f/u with results. 3.UTI -U/A showed Moderate Leuk esterase. -Ceftriaxone 1g IV q24h started. GI ppx -Protonix DVTppx -SCD's <Carla SEGOVAI,[place] - Last Filed: 06/14/17 07:59> Results - Vital Signs Recent Vital Signs: Last Vital Signs Temp 97.6 F 06/14/17 06:00 Pulse 91 H 06/14/17 06:00 Resp 22 06/14/17 06:00 BP 158/85 H 06/14/17 06:00 Pulse Ox 98 06/14/17 06:00 - Labs Result Diagrams: 06/13/17 18:30 06/13/17 18:30 Attending/Attestation - Attestation I have personally seen and examined this patient.: Yes I have fully participated in the care of the patient.: Yes I have reviewed all pertinent clinical information: Yes Notes (Text): -I agree with the above H&P completed by the resident physician with the following additions and/or changes: -The patient is a 61 year old man with a history of nephrolithiasis, [place] x 3 (s/ p PCI's), hypertension and abdominal anuerysm (s/p 2 repair surgeries), who is being admitted with gross hematuria, UTI and chest pain. Of note, the patient denies any chest pain since arrival to the ED. He also denies any history of unintentional weight loss or prior history of gross hematuria. Given the patient 's extensive cardiac history, we will obtain serial trop's and EKG's and a cardiology consult. In addition, urology has been consulted. The patient will be started in IV Ceftriaxone and kept NPO overnight. Home meds of ASA and Plavix will be held due to recurring gross hematuria.
[2017-06-14] MEDS ORDERED: HYDROmorphone 1 mg/ml ISec IVP STA ×2 (01:32→04:33)
[2017-06-14] MEDS: Sodium Chloride 0.9% 1,000 ML IV SCH ×2 (02:00→16:25)
--- NOTE | 2017-06-14 05:33 | PCM.URO ---
Urology Progress Note - Subjective Hematuria: Yes - Objective Lab Studies: Reviewed (full note to be dictated /thanks for gu consult /plans to be discussed) Intake & Output: Intake & Output 06/13/17 06/13/17 06/14/17 06:59 18:59 06:59 Other: Voiding Method Toilet Vital Signs: Vital Signs - 24 hr 06/13/17 06/14/17 06/14/17 22:00 01:15 02:00 Temperature 98.1 F Pulse Rate 84 94 H 97 H Respiratory 16 18 Rate Blood Pressure 124/72 127/68 O2 Sat by Pulse 99 Oximetry
--- NOTE | 2017-06-14 09:25 | CARD ---
APPROVED REPORT EKG Measurement Heart [id number] MN [id number] <Conclusion> Normal sinus rhythm Inferior infarct, age undetermined Possible Anterolateral infarct, age undetermined NSSTW changes LAD
[2017-06-14] MEDS: Metoprolol Succinate 50 mg XL Tab PO SCH (09:26)
[2017-06-14] MEDS: cefTRIAXone 1 gm 1 GM/100 ML BAG IVPB SCH (09:28)
[2017-06-14 09:51] LABS: BASO # 0.02 K/mm3 (0.0-2.0); BASO % 0.2 % (0.0-3.0); EOS % 0.1 % (1.5-5.0); GRAN # 6.07 (1.4-6.5); GRAN % 75.8 % (50.0-68.0); HEMATOCRIT 38.5 % (42.0-52.0); LYMPH # 1.1 (1.2-3.4); LYMPH % 13.2 % (22.0-35.0); MEAN CELL VOLUME 97.5 fl (80.0-105.0); MEAN CORPUSCULAR HEMOGLOBIN 32.4 pg (25.0-35.0); MEAN CORPUSCULAR HGB CONC 33.2 g/dl (31.0-37.0); MEAN PLATELET VOLUME 9.6 fl (7.0-11.0); MONO # 0.9 (0.1-0.6); MONO % 10.7 % (1.0-6.0); RED CELL DISTRIBUTION WIDTH 16.1 % (11.5-14.5)
--- NOTE | 2017-06-14 09:57 | RAD ---
HISTORY: chest pain COMPARISON: No prior. FINDINGS: LUNGS: Fibrotic changes are identified at the mid to inferior right lung zone with significant volume loss of the right lung and volume expansion of the left lung. No left-sided infiltrate. Fibrotic changes versus pleural effusion blunts the right costophrenic sulcus with none identified at the left. No definitive acute infiltrate bilaterally. No pneumothorax. PLEURA: As above. CARDIOVASCULAR: Cardiac silhouette is shifted toward the right as well as the remainder of the mid to inferior mediastinum due to volume loss of the right lung. Cardiac size appears upper limits of normal. No pulmonary vascular derangement. OSSEOUS STRUCTURES: No significant abnormalities. VISUALIZED UPPER ABDOMEN: Upper portion of aortic stent graft identified at the midline abdomen. OTHER FINDINGS: None. IMPRESSION: Trace right pleural effusion versus fibrosis blunts the right costophrenic sulcus and there is prominent volume loss of the right lung on the basis of fibrotic change at the mid to inferior right lung. No definitive infiltrate bilaterally.
[2017-06-14 10:00] LABS: ALB/GLOB RATIO 1.2 (1.1-1.8); ALKALINE PHOSPHATASE 87 U/L (38-126); ALT/SGPT 26 U/L (7-56); AST/SGOT 19 U/L (17-59); BILIRUBIN,TOTAL 0.8 mg/dL (0.2-1.3); BLOOD UREA NITROGEN 11 mg/dL (7-21); CALCIUM 9.1 mg/dL (8.4-10.5); CARBON DIOXIDE 24 mmol/L (21-33); CHLORIDE 105 mmol/L (98-107); GFR AFRICAN-AMERICAN > 60; GLUCOSE,RANDOM 95 mg/dL (70-110); PHOSPHOROUS 3.2 mg/dL (2.5-4.5); POTASSIUM 3.6 mmol/L (3.6-5.0); SODIUM 141 mmol/L (132-148); TOTAL PROTEIN 6.9 g/dL (5.8-8.3)
[2017-06-14 10:15] LABS: TROPONIN I < 0.01 ng/mL
[2017-06-14] MEDS: HYDROmorphone 1 mg/ml ISec IVP PRN ×3 (10:27→20:29)
--- NOTE | 2017-06-14 17:30 | CARD ---
APPROVED REPORT EXAM: Two-dimensional and M-mode echocardiogram with Doppler and color Doppler. INDICATION 2D DIMENSIONS IVSd1.2 (0.7-1.1cm)LVDd5.3 (3.9-5.9cm) PWd1.6 (0.7-1.1cm)LVDs3.2 (2.5-4.0cm) FS (%) 39.3 %LVEF (%)55.0 (>50%) M-Mode DIMENSIONS Left Atrium (MM)3.30 (2.5-4.0cm)Aortic Root3.40 (2.2-3.7cm) Aortic Cusp Exc.1.90 (1.5-2.0cm) Aortic Valve AoV Peak Qeisfowh609.0cm/Zahra Peak GR.13mmHg Mitral Valve MV E Dhqodaey85.6cm/sMV A Wmchxvos74.3cm/sE/A ratio0.7 TDI Lateral E' Peak V6.34cm/sMedial E' Peak V4.97cm/sE/Lateral E'10.5 E/Medial E'13.4 Tricuspid Valve TR Peak Phmmomsx573ks/sRAP [id number] Peak Gr.10mmHg [id number] LEFT VENTRICLE The left ventricle is normal size. There is normal left ventricular wall thickness. Left ventricle ejection fraction is normal. Aneurysmal [place] Transmitral Doppler flow pattern is Grade I-abnormal relaxation pattern. RIGHT VENTRICLE The right ventricle is normal size. There is normal right ventricular wall thickness. The right ventricular systolic function is normal. ATRIA The left atrium size is normal. The right atrium size is normal. AORTIC VALVE The aortic valve is not well visualized. No aortic regurgitation is present. MITRAL VALVE The mitral valve is not well visualized. There is no mitral valve regurgitation noted. TRICUSPID VALVE There is no pulmonary hypertension. GREAT VESSELS The aortic root is normal in size. The IVC is normal in size and collapses >50% with inspiration. <Conclusion> The left ventricle is normal size. There is normal left ventricular wall thickness. Left ventricle ejection fraction is normal. Aneurysmal [place] Transmitral Doppler flow pattern is Grade I-abnormal relaxation pattern.
[2017-06-14] MEDS: oxyCODONE 20 mg ER Tab (oxyCONTIN) PO SCH (21:13)
--- NOTE | 2017-06-15 04:02 | CON ---
CARDIOLOGY CONSULTATION DATE: REASON FOR CONSULTATION: Coronary artery disease and chest pain on presentation. HISTORY OF PRESENT ILLNESS: The patient is a 61-year-old male who has a history of coronary artery disease, status post coronary artery stenting many years ago at the [facility], history of cervical spine disk fusion with residual left leg weakness; therefore, the patient on disability since then. The patient has a history of abdominal aortic aneurysm, status post stenting at [place] and the patient presented because of hematuria and chest pain as well as burning micturition. The patient is unaware of any prior history of bladder cancer. He does have history of ureteric stone in the past. The patient denies any chest pain at this time. SOCIAL HISTORY: The patient is a smoker. He lives with his son. MEDICATIONS: Dilaudid 1 mg intravenously q. 4 hours p.r.n., Lipitor 80 mg p.o. at bedtime, oxycodone 20 mg p.o. twice a day, Protonix 40 mg intravenously once a day, Rocephin 1 g intravenously daily, normal saline 10 mL an hour, Toprol-XL 50 mg once a day, and Zestril 10 mg daily. PHYSICAL EXAMINATION: GENERAL: The patient is a middle-aged male, who does not appear to be in acute distress. VITAL SIGNS: Blood pressure , temperature 98.6, respirations 18. HEENT: Normocephalic. CHEST: Bilateral rhonchi. HEART: S1, S2 regular. ABDOMEN: Soft. EXTREMITIES: No edema. LABORATORY DATA: Hemoglobin and hematocrit 12.8 and 38.5 with a drop of about 1.5 gram compared to yesterday. White count and platelet counts are within normal limits. SMA-7 today is within normal limits except for creatinine of 0.7. Two sets of troponins are negative. Lipid profile is within normal limit. INR is 1.3, PTT is 35.5. EKG revealed sinus rhythm, inferior and anterolateral infarcts of indeterminate ages. Abdomen and pelvis CT scan, there is fullness in the left renal collecting system/mild hydronephrosis and distal left hydroureter. No obstructing ureter catheters is identified. There is mild prominence of the distal right ureter. There is abnormal density within the bladder concerning for hemorrhage or mass. There is stranding of the soft tissue surrounding the bladder suggestive of cystitis. The prostate is enlarged. There is aneurysmal dilatation of the abdominal aorta and bilateral common iliac arteries and aortobiiliac stent graft is identified. Hyperdense left adrenal nodules are identified, suggestive of adenoma, hepatomegaly. ASSESSMENT: 1. Abnormal EKG with evidence of anterior and anterolateral myocardial infarctions of indeterminate age. Myocardial infarction was ruled out at this time. 2. Left hydronephrosis and hydroureter. 3. Status post aortobiiliac stent graft for abdominal aortic aneurysm. 4. Hypertension. RECOMMENDATIONS: Continue current IV Rocephin, continue Lipitor at 80 mg once a day, Toprol-XL 50 mg once a day, Zestril 10 mg once a day. The patient is not a suitable candidate for antiplatelet or anticoagulation at least at this time shea hematuria, obtain an echocardiogram. Olvin Victor MD
[2017-06-15] MEDS: Sodium Chloride 0.9% 1,000 ML IV SCH ×2 (05:06→14:50)
[2017-06-15 06:27] LABS: BASO # 0.02 K/mm3 (0.0-2.0); BASO % 0.3 % (0.0-3.0); EOS # 0.1 (0.0-0.7); EOS % 0.7 % (1.5-5.0); GRAN # 4.57 (1.4-6.5); GRAN % 61.8 % (50.0-68.0); LYMPH # 1.7 (1.2-3.4); LYMPH % 23.3 % (22.0-35.0); MEAN CELL VOLUME 98.6 fl (80.0-105.0); MEAN CORPUSCULAR HEMOGLOBIN 32.1 pg (25.0-35.0); MEAN CORPUSCULAR HGB CONC 32.6 g/dl (31.0-37.0); MEAN PLATELET VOLUME 9.4 fl (7.0-11.0); MONO % 13.9 % (1.0-6.0); RED CELL DISTRIBUTION WIDTH 16.5 % (11.5-14.5); WHITE BLOOD COUNT 7.4 10^3/ul (4.5-11.0)
[2017-06-15 06:47] LABS: ALB/GLOB RATIO 1.2 (1.1-1.8); ALKALINE PHOSPHATASE 71 U/L (38-126); ALT/SGPT 20 U/L (7-56); AST/SGOT 20 U/L (17-59); BILIRUBIN,TOTAL 0.8 mg/dL (0.2-1.3); BLOOD UREA NITROGEN 9 mg/dL (7-21); CALCIUM 8.5 mg/dL (8.4-10.5); CARBON DIOXIDE 29 mmol/L (21-33); CHLORIDE 107 mmol/L (98-107); GFR AFRICAN-AMERICAN > 60; GLUCOSE,RANDOM 80 mg/dL (70-110); SODIUM 142 mmol/L (132-148); TOTAL PROTEIN 5.9 g/dL (5.8-8.3)
[2017-06-15] MEDS: oxyCODONE 20 mg ER Tab (oxyCONTIN) PO SCH ×3 (08:52→23:53)
[2017-06-15] MEDS: cefTRIAXone 1 gm 1 GM/100 ML BAG IVPB SCH (10:21)
[2017-06-15] MEDS: HYDROmorphone 1 mg/ml ISec IVP PRN ×2 (10:22→14:46)
--- NOTE | 2017-06-15 10:28 | CP.PCM.PN ---
<STEPHANIE MAIER - Last Filed: 06/15/17 10:25> Subjective - Date & Time of Evaluation Date of Evaluation: 06/15/17 Time of Evaluation: 10:25 - Subjective Subjective: Medicine Progress Note: Pt seen and examined at bedside. Mal blood per sosa catheter unchanged from yesterday. Pt states that irrigating bladder too quickly is painful. Overnight patient requested morphine for irrigation instead of dilaudid, however it was explained to the patient that dilaudid is stronger. The patient was amenable. Pt denied CP, SOB, nausea, vomiting, diarrhea, constipation, chills, fever, abdominal pain, dysuria, CHASE, or dizziness. Objective - Vital Signs/Intake and Output Vital Signs (last 24 hours): Temp Pulse Resp BP Pulse Ox 98.5 F 70 19 98/60 L 99 06/15/17 06:00 06/15/17 06:00 06/15/17 06:00 06/15/17 06:00 06/15/17 06:00 Intake and Output: 06/15/17 06/15/17 06:59 18:59 Intake Total 1700 Output Total 650 Balance 1050 - Medications Medications: Current Medications Alprazolam (Xanax) 0.5 mg PO TID PRN; Protocol PRN Reason: Anxiety Last Admin: 06/15/17 08:52 Dose: 0.5 mg Atorvastatin Calcium (Lipitor) 80 mg PO HS [facility] Last Admin: 06/14/17 21:13 Dose: 80 mg Hydromorphone HCl (Dilaudid) 1 mg IVP Q4H PRN PRN Reason: Pain, severe (8-10) Ceftriaxone Sodium (Rocephin 1 Gram Ivpb) 1 gm in 100 mls @ 100 mls/hr IVPB DAILY [facility] PRN Reason: Protocol Last Admin: 06/14/17 09:28 Dose: 100 mls/hr Sodium Chloride (Sodium Chloride 0.9%) 1,000 mls @ 100 mls/hr IV .Q10H [facility] Last Admin: 06/15/17 05:06 Dose: 100 mls/hr Potassium Chloride (Potassium Chloride 20 Meq/100 Ml) 20 meq in 100 mls @ 50 mls/hr IVPB Q2H [facility] Stop: 06/15/17 11:29 Last Admin: 06/15/17 08:52 Dose: 50 mls/hr Lisinopril (Zestril) 10 mg PO DAILY [facility] Last Admin: 06/14/17 09:26 Dose: 10 mg Metoprolol Succinate (Toprol Xl) 50 mg PO DAILY [facility] Last Admin: 06/14/17 09:26 Dose: 50 mg Oxycodone HCl (Oxycontin Extended Release Tab) 20 mg PO Q12 [facility] Last Admin: 06/15/17 08:52 Dose: 20 mg Pantoprazole Sodium (Protonix Inj) 40 mg IVP DAILY [facility] Last Admin: 06/14/17 09:20 Dose: 40 mg Pregabalin (Lyrica) 150 mg PO BID [facility] Last Admin: 06/14/17 17:59 Dose: 150 mg - Labs Labs: 06/15/17 06:00 06/15/17 06:00 PT 14.2 SECONDS (9.4-12.5) H 06/13/17 19:00 INR 1.30 (0.93-1.08) H 06/13/17 19:00 APTT 35.5 Seconds (25.1-36.5) 06/13/17 19:00 - Constitutional Appears: No Acute Distress - Head Exam Head Exam: ATRAUMATIC, NORMOCEPHALIC - Eye Exam Eye Exam: EOMI, PERRL - ENT Exam ENT Exam: Mucous Membranes Moist - Neck Exam Neck Exam: Full ROM. absent: Lymphadenopathy, Tenderness, Thyromegaly - Respiratory Exam Respiratory Exam: Clear to Ausculation Bilateral. absent: Accessory Muscle Use , Rales, Rhonchi, Wheezes, Respiratory Distress - Cardiovascular Exam Cardiovascular Exam: RRR, +S1, +S2. absent: Clicks, Diastolic murmur, Gallop, Rubs, Murmur - GI/Abdominal Exam GI & Abdominal Exam: Soft, Tenderness (suprapubic). absent: Distended, Firm, Guarding, Rebound - Exam Additional comments: Mal blood per sosa. Dried blood at penile meatus, leak after irriagation. - Neurological Exam Neurological Exam: Alert, Awake, Oriented x3 - Psychiatric Exam Psychiatric exam: Normal Affect, Normal Mood - Skin Skin Exam: Dry, Intact, Normal Color, Warm Assessment and Plan - Assessment and Plan (Free Text) Assessment: 61 year old male with a past medical history of hypertension, 3 M.I., nephrolithiasis, abdominal aneurysm (s/p 2 surgeries) admitted for evaluation and treatment for gross hematuria and chest pain. Plan: 1. Gross hematuria - Abd/pelvis CT Fullness of left renal collecting system/mild hydronephrosis, left hydroureter NO obstructing ureteral calculus Abnormal density within bladder, concerning for hemorrhage or mass Stranding, suggestive of cystitis - Urology consulted Sosa catheter with irrigation q4 - Dilaudid prn for pain - Oxycodone ER q12 judith - IV fluids at 100 mls/hr 2. Chest pain - Cardiology consulted, cont current meds - Troponin negative x3 - EKG showed NSR, inferior infarct age undetermined - Echo showed LVEF 55% - Lipids WNL, f/u A1C 3. UTI - UA showed moderate Leuk esterase, positive nitrate, large blood - Ceftriaxone 1g IV q24h - F/u cultures 4. Hypokalemia - K 3.0 - KCl IVPB - Monitor and replete as needed 5. H/o abdominal aortic aneurysm - CT showed Aneurysmal dilatation of abdominal aortal (3.3 cm) and bilateral common iliac arteries - Advised routine outpatient follow up to monitor size GI/DVT ppx - Protonix - SCD's Pt seen and discussed in detail with Dr. Traore. Jose Maier, PGY1 <Gay Traore - Last Filed: 06/15/17 12:18> Objective - Vital Signs/Intake and Output Vital Signs (last 24 hours): Temp Pulse Resp BP Pulse Ox 98.5 F 81 19 121/60 99 06/15/17 06:00 06/15/17 10:31 06/15/17 06:00 06/15/17 10:31 06/15/17 06:00 Intake and Output: 06/15/17 06/15/17 06:59 18:59 Intake Total 1700 Output Total 650 Balance 1050 - Medications Medications: Current Medications Alprazolam (Xanax) 0.5 mg PO TID PRN; Protocol PRN Reason: Anxiety Last Admin: 06/15/17 08:52 Dose: 0.5 mg Atorvastatin Calcium (Lipitor) 80 mg PO HS [facility] Last Admin: 06/14/17 21:13 Dose: 80 mg Hydromorphone HCl (Dilaudid) 1 mg IVP Q4H PRN PRN Reason: Pain, severe (8-10) Last Admin: 06/15/17 10:22 Dose: 1 mg Ceftriaxone Sodium (Rocephin 1 Gram Ivpb) 1 gm in 100 mls @ 100 mls/hr IVPB DAILY JUDITH PRN Reason: Protocol Last Admin: 06/15/17 10:21 Dose: 100 mls/hr Sodium Chloride (Sodium Chloride 0.9%) 1,000 mls @ 100 mls/hr IV .Q10H [facility] Last Admin: 06/15/17 05:06 Dose: 100 mls/hr Lidocaine HCl (Xylocaine 2%) 0 ea TOP Q4H PRN PRN Reason: BLEEDING/PAIN Lisinopril (Zestril) 10 mg PO DAILY [facility] Last Admin: 06/15/17 10:22 Dose: 10 mg Metoprolol Succinate (Toprol Xl) 50 mg PO DAILY [facility] Last Admin: 06/15/17 10:31 Dose: 50 mg Oxycodone HCl (Oxycontin Extended Release Tab) 20 mg PO Q12 [facility] Last Admin: 06/15/17 10:29 Dose: Not Given Pantoprazole Sodium (Protonix Inj) 40 mg IVP DAILY [facility] Last Admin: 06/15/17 10:22 Dose: 40 mg Pregabalin (Lyrica) 150 mg PO BID [facility] Last Admin: 06/15/17 10:26 Dose: 150 mg - Labs Labs: 06/15/17 06:00 06/15/17 06:00 PT 14.2 SECONDS (9.4-12.5) H 06/13/17 19:00 INR 1.30 (0.93-1.08) H 06/13/17 19:00 APTT 35.5 Seconds (25.1-36.5) 06/13/17 19:00 Attending/Attestation - Attestation I have personally seen and examined this patient.: Yes I have fully participated in the care of the patient.: Yes I have reviewed all pertinent clinical information, including history, physical exam and plan: Yes Notes (Text): 06/15/17 12:06 61 year old male with past medical history of hyeprtension, CAD/NM, and abdominal aneurysm s/p surgeries who presented with complaint of chest pain 2 days prior and gross hematuria. Abdominal CT reviewed which showed fullness of the left renal collecting system with mild hydronephrosis and left hydroureter witih no obstructing ureteral calculus; abnormal density within bladder, concerning for mass or hemorrhage. UA was also positive for moderate leukocyte esterase, positive nitrate and large blood. Ucx is pending. Continue with iv antibiotics. Continue with holding aspirin and plavix. Continue with iv fluids and sosa irrigation. Urology and cardiology are following the patient. Chest pain has resolved and serial cardiac enzymes were negative. Echocardiogram was reviewed. Case was discussed with Dr. Victor today regarding cardiac clearance for possibly cystoscopy. Will also discuss with urology. Will replete and repeat potassium. Gay Traore MD Hospitalist.
[2017-06-15] MEDS: Metoprolol Succinate 50 mg XL Tab PO SCH (10:31)
[2017-06-15] MEDS ORDERED: Lidocaine 2% Jelly (Uro-Jet) TOP PRN (11:45)
[2017-06-15] MEDS: Lidocaine 2% Jelly (30 ml) TOP PRN ×3 (14:47→23:30)
--- NOTE | 2017-06-15 14:47 | PN ---
DATE: SUBJECTIVE: The patient denies chest pain. He is experiencing left flank pain and still has hematuria. PHYSICAL EXAMINATION VITAL SIGNS: Blood pressure of 121/60, heart rate of 81, temperature of 98.5, and respirations of 19. HEENT: Normocephalic. CHEST: Clear. HEART: S1 and S2 regular. EXTREMITIES: No edema. LABORATORY DATA: Hemoglobin and hematocrit are 11.4 and 35. White count and platelet count are within normal limits. Today's potassium is 3.0 and rest of SMA-7 is within normal limits. DIAGNOSTIC DATA: Echocardiographic study revealed normal left ventricular size and wall thickness, aneurysmal apex with normal ejection fraction, and grade I abnormal relaxation pattern. ASSESSMENT: 1. Abnormal electrocardiogram with evidence of old inferior and anterolateral infarcts. a. Myocardial infarction is ruled out. 2. Hydroureter and hydronephrosis. 3. History of abdominal aortic aneurysm status post aorto-biiliac stent graft. 4. Hypertension. RECOMMENDATIONS: Continue current Lipitor 40 mg once a day. The patient is currently receiving IV potassium replacement for hypokalemia. Continue IV Protonix, IV Rocephin, Toprol-XL at 50 mg once a day and Zestril at 10 mg once a day. The patient can undergo cystoscopy from the cardiac point of view preferably under sedation and nerve block rather than general anesthesia. Olvin Victor MD
[2017-06-15] MEDS ORDERED: HYDROmorphone 2 mg/ml ISec IVP PRN (17:29)
[2017-06-15] MEDS ORDERED: Metoprolol Succinate 50 mg XL Tab PO SCH (18:18)
[2017-06-15] MEDS: HYDROmorphone 2 mg/ml ISec IVP PRN ×2 (18:53→23:11)
[2017-06-15] MEDS: DiphenhydrAMINE 50 mg/ml Inj IVP PRN (19:08)
--- NOTE | 2017-06-15 21:25 | PCM.URO ---
Urology Progress Note - Subjective Abdominal Pain: Yes - Objective Lab Results Last 24 Hours: Laboratory Results - last 24 hr 06/15/17 06/15/17 06/15/17 06:00 06:00 09:25 WBC 7.4 RBC 3.55 Hgb 11.4 L Hct 35.0 L MCV 98.6 MCH 32.1 MCHC 32.6 RDW 16.5 H Plt Count 237 MPV 9.4 Gran % 61.8 Lymph % (Auto) 23.3 Whiteside % (Auto) 13.9 H Eos % (Auto) 0.7 L Baso % (Auto) 0.3 Gran # 4.57 Lymph # 1.7 Whiteside # 1.0 H Eos # 0.1 Baso # 0.02 Sodium 142 Potassium 3.0 L Chloride 107 Carbon Dioxide 29 Anion Gap 9 L BUN 9 Creatinine 0.8 Est GFR ( Amer) > 60 Est GFR (Non-Af Amer) > 60 Random Glucose 80 Calcium 8.5 Magnesium 2.1 Total Bilirubin 0.8 AST 20 ALT 20 Alkaline Phosphatase 71 Total Protein 5.9 Albumin 3.2 Globulin 2.6 Albumin/Globulin Ratio 1.2 Intake & Output: Intake & Output 06/15/17 06/15/17 06/16/17 06:59 18:59 06:59 Intake Total 1700 Output Total 650 Balance 1050 Intake: IV 1200 Right Forearm 1200 Oral 500 Output: Urine 650 Urine, Voided 650 Other: # Voids Urine, Voided 3 Vital Signs: Vital Signs - 24 hr 06/14/17 06/15/17 06/15/17 22:00 00:01 02:00 Temperature 98.7 F Pulse Rate 71 74 72 Respiratory 18 Rate Blood Pressure 107/70 O2 Sat by Pulse Oximetry 06/15/17 06/15/17 06/15/17 06:00 10:00 10:22 Temperature 98.5 F Pulse Rate 70 70 81 Respiratory 19 Rate Blood Pressure 98/60 L 121/60 O2 Sat by Pulse 99 Oximetry 06/15/17 06/15/17 06/15/17 10:31 12:00 15:00 Temperature 99.6 F Pulse Rate 81 79 Respiratory 20 Rate Blood Pressure 121/60 85/48 L 109/63 O2 Sat by Pulse Oximetry 06/15/17 17:14 Temperature 99.2 F Pulse Rate 75 Respiratory 16 Rate Blood Pressure 106/65 O2 Sat by Pulse Oximetry - Physical Exam Bowel Sounds: Normal (pt for cystoscopy 06/16)
[2017-06-16] MEDS: Sodium Chloride 0.9% 1,000 ML IV SCH ×5 (00:15→20:15)
[2017-06-16] MEDS: Lidocaine 2% Jelly (30 ml) TOP PRN ×5 (03:58→21:47)
[2017-06-16] MEDS: HYDROmorphone 2 mg/ml ISec IVP PRN ×5 (03:58→21:48)
[2017-06-16] MEDS: DiphenhydrAMINE 50 mg/ml Inj IVP PRN ×3 (05:03→14:14)
[2017-06-16 06:39] LABS: BASO # 0.01 K/mm3 (0.0-2.0); BASO % 0.2 % (0.0-3.0); EOS # 0.1 (0.0-0.7); GRAN # 4.22 (1.4-6.5); GRAN % 66.9 % (50.0-68.0); LYMPH # 1.1 (1.2-3.4); MEAN CELL VOLUME 98.8 fl (80.0-105.0); MEAN CORPUSCULAR HEMOGLOBIN 32.3 pg (25.0-35.0); MEAN CORPUSCULAR HGB CONC 32.7 g/dl (31.0-37.0); MEAN PLATELET VOLUME 9.7 fl (7.0-11.0); MONO # 0.9 (0.1-0.6); MONO % 14.9 % (1.0-6.0); RED CELL DISTRIBUTION WIDTH 16.4 % (11.5-14.5); WHITE BLOOD COUNT 6.3 10^3/ul (4.5-11.0)
[2017-06-16 06:49] LABS: ALB/GLOB RATIO 1.1 (1.1-1.8); ALKALINE PHOSPHATASE 61 U/L (38-126); ALT/SGPT 28 U/L (7-56); AST/SGOT 18 U/L (17-59); BILIRUBIN,TOTAL 0.6 mg/dL (0.2-1.3); BLOOD UREA NITROGEN 10 mg/dL (7-21); CALCIUM 8.3 mg/dL (8.4-10.5); CARBON DIOXIDE 29 mmol/L (21-33); CHLORIDE 109 mmol/L (98-107); GFR AFRICAN-AMERICAN > 60; GLUCOSE,RANDOM 91 mg/dL (70-110); POTASSIUM 3.3 mmol/L (3.6-5.0); SODIUM 144 mmol/L (132-148); TOTAL PROTEIN 5.5 g/dL (5.8-8.3)
[2017-06-16] MEDS: cefTRIAXone 1 gm 1 GM/100 ML BAG IVPB SCH (09:15)
[2017-06-16] MEDS: oxyCODONE 20 mg ER Tab (oxyCONTIN) PO SCH ×2 (09:15→23:00)
[2017-06-16] MEDS ORDERED: Potassium Chloride 20 mEq ER Tab PO ONE (09:45)
--- NOTE | 2017-06-16 11:25 | CP.PCM.PN ---
Addendum entered and electronically signed by STEPHANIE MAIER DO 06/16/17 13:20 : Pt seen and discussed in detail with Dr. Kaplan. Not Dr. Traore. Original Note: <STEPHANIE MAIER - Last Filed: 06/16/17 11:22> Subjective - Date & Time of Evaluation Date of Evaluation: 06/16/17 Time of Evaluation: 11:22 - Subjective Subjective: Medicine Progress Note: Pt seen and examined at bedside. Pt states that pain is moderately controlled. Pt states he gets a burning sensation when he feels he has to urinate. Pt denied CP, SOB, nausea, vomiting, diarrhea, constipation, CHASE, and fatigue. Objective - Vital Signs/Intake and Output Vital Signs (last 24 hours): Temp Pulse Resp BP Pulse Ox 99.4 F 60 18 122/73 94 L 06/16/17 06:00 06/16/17 10:00 06/16/17 06:00 06/16/17 09:16 06/16/17 06:00 Intake and Output: 06/16/17 06/16/17 06:59 18:59 Intake Total 240 Output Total 1200 Balance -960 - Medications Medications: Current Medications Alprazolam (Xanax) 0.5 mg PO TID PRN; Protocol PRN Reason: Anxiety Last Admin: 06/16/17 09:16 Dose: 0.5 mg Diphenhydramine HCl (Benadryl) 50 mg IVP Q4H PRN PRN Reason: Allergy symptoms Last Admin: 06/16/17 09:15 Dose: 50 mg Hydromorphone HCl (Dilaudid) 1.25 mg IVP Q4H PRN PRN Reason: Pain, severe (8-10) Last Admin: 06/16/17 08:19 Dose: 1.25 mg Ceftriaxone Sodium (Rocephin 1 Gram Ivpb) 1 gm in 100 mls @ 100 mls/hr IVPB DAILY [facility] PRN Reason: Protocol Last Admin: 06/16/17 09:15 Dose: 100 mls/hr Sodium Chloride (Sodium Chloride 0.9%) 1,000 mls @ 100 mls/hr IV .Q10H [facility] Last Admin: 06/16/17 04:10 Dose: 100 mls/hr Lidocaine HCl (Xylocaine 2%) 0 ea TOP Q4H PRN PRN Reason: BLEEDING/PAIN Last Admin: 06/16/17 08:20 Dose: 1 applic Lisinopril (Zestril) 10 mg PO DAILY [facility] Last Admin: 06/16/17 09:16 Dose: 10 mg Metoprolol Succinate (Toprol Xl) 50 mg PO DAILY [facility] Last Admin: 06/16/17 09:16 Dose: 50 mg Oxycodone HCl (Oxycontin Extended Release Tab) 20 mg PO Q12 [facility] Last Admin: 06/16/17 09:15 Dose: 20 mg Pantoprazole Sodium (Protonix Inj) 40 mg IVP DAILY [facility] Last Admin: 06/16/17 09:15 Dose: 40 mg Pregabalin (Lyrica) 150 mg PO BID [facility] Last Admin: 06/16/17 09:16 Dose: 150 mg - Labs Labs: 06/16/17 05:50 06/16/17 05:50 PT 14.2 SECONDS (9.4-12.5) H 06/13/17 19:00 INR 1.30 (0.93-1.08) H 06/13/17 19:00 APTT 35.5 Seconds (25.1-36.5) 06/13/17 19:00 - Constitutional Appears: No Acute Distress - Head Exam Head Exam: ATRAUMATIC, NORMOCEPHALIC - Eye Exam Eye Exam: EOMI, Normal appearance, PERRL - ENT Exam ENT Exam: Mucous Membranes Moist, Normal Exam - Respiratory Exam Respiratory Exam: Clear to Ausculation Bilateral. absent: Rales, Rhonchi, Wheezes - Cardiovascular Exam Cardiovascular Exam: RRR, +S1, +S2. absent: Diastolic murmur, Gallop, Rubs, Murmur - GI/Abdominal Exam GI & Abdominal Exam: Guarding, Soft, Tenderness (suprapubic). absent: Distended , Rigid, Mass, Rebound - Exam Additional comments: Mal blood per sosa, dried blood visualized at penile meatus - Extremities Exam Extremities Exam: Normal Inspection - Neurological Exam Neurological Exam: Alert, Awake, Oriented x3 - Psychiatric Exam Psychiatric exam: Normal Affect, Normal Mood - Skin Skin Exam: Dry, Intact, Normal Color, Warm Assessment and Plan - Assessment and Plan (Free Text) Assessment: 61 year old male with a past medical history of hypertension, 3 M.I., nephrolithiasis, abdominal aneurysm (s/p 2 surgeries) admitted for evaluation and treatment for gross hematuria and chest pain. Plan: 1. Gross hematuria - Abd/pelvis CT Fullness of left renal collecting system/mild hydronephrosis, left hydroureter NO obstructing ureteral calculus Abnormal density within bladder, concerning for hemorrhage or mass Stranding, suggestive of cystitis - Urology consulted Sosa catheter with irrigation q4 Plan for cystoscopy today - Dilaudid prn for pain - Oxycodone ER q12 judith - IV fluids at 100 mls/hr 2. UTI - UA showed moderate Leuk esterase, positive nitrate, large blood - Ceftriaxone 1g IV q24h - Urine grew multiple species, likely contaminated 3. Hypokalemia - K 3.3 - KCl PO - Monitor and replete as needed 4. HTN - Cont home med: Lisinopril, metoprolol - Hold if SBP<90, DBP<60 5. Chest pain, resolved - Cardiology consulted, cont current meds - Troponin negative x3 - EKG showed NSR, inferior infarct age undetermined - Echo showed LVEF 55% - Lipids, A1C WNL 6. H/o abdominal aortic aneurysm - CT showed Aneurysmal dilatation of abdominal aortal (3.3 cm) and bilateral common iliac arteries - Advised routine outpatient follow up to monitor size 7. H/o of CAD - Hold ASA and plavix due to hematuria GI/DVT ppx - Protonix - SCD's Pt seen and discussed in detail with Dr. Traore. Jose Maier, PGY1 <Adilene Kaplan - Last Filed: 06/18/17 13:58> Objective - Vital Signs/Intake and Output Vital Signs (last 24 hours): Temp Pulse Resp BP Pulse Ox 98.6 F 78 20 101/61 94 L 06/18/17 11:52 06/18/17 11:52 06/18/17 11:52 06/18/17 11:52 06/17/17 18:53 Intake and Output: 06/18/17 06/18/17 06:59 18:59 Intake Total 1461 Output Total 9300 Balance -3130 - Medications Medications: Current Medications Alprazolam (Xanax) 0.5 mg PO TID PRN; Protocol PRN Reason: Anxiety Last Admin: 06/16/17 09:16 Dose: 0.5 mg Diphenhydramine HCl (Benadryl) 50 mg IVP Q4H PRN PRN Reason: Anxiety Last Admin: 06/18/17 05:28 Dose: 50 mg Hydromorphone HCl (Dilaudid) 2 mg IVP Q4H PRN PRN Reason: Pain, severe (8-10) Last Admin: 06/18/17 13:18 Dose: 2 mg Ceftriaxone Sodium (Rocephin 1 Gram Ivpb) 1 gm in 100 mls @ 100 mls/hr IVPB DAILY [facility] PRN Reason: Protocol Last Admin: 06/18/17 09:27 Dose: 100 mls/hr Sodium Chloride (Sodium Chloride 0.9%) 1,000 mls @ 100 mls/hr IV .Q10H [facility] Last Admin: 06/18/17 09:42 Dose: 100 mls/hr Lidocaine HCl (Xylocaine 2%) 0 ea TOP Q4H PRN PRN Reason: BLEEDING/PAIN Last Admin: 06/17/17 05:24 Dose: 1 applic Lisinopril (Zestril) 10 mg PO DAILY [facility] Last Admin: 06/18/17 09:10 Dose: 10 mg Metoprolol Succinate (Toprol Xl) 50 mg PO DAILY [facility] Last Admin: 06/18/17 09:10 Dose: 50 mg Ondansetron HCl (Zofran Inj) 4 mg IVP ONCE PRN PRN Reason: Nausea/Vomiting Oxycodone HCl (Oxycontin Extended Release Tab) 20 mg PO Q12 [facility] Last Admin: 06/18/17 09:45 Dose: Not Given Pantoprazole Sodium (Protonix Inj) 40 mg IVP DAILY [facility] Last Admin: 06/18/17 09:09 Dose: 40 mg Phenazopyridine HCl (Pyridium) 200 mg PO PC [facility] Last Admin: 06/18/17 09:10 Dose: 200 mg Pregabalin (Lyrica) 150 mg PO BID [facility] Last Admin: 06/18/17 09:10 Dose: 150 mg - Labs Labs: 06/18/17 10:45 06/18/17 10:45 PT 14.2 SECONDS (9.4-12.5) H 06/13/17 19:00 INR 1.30 (0.93-1.08) H 06/13/17 19:00 APTT 35.5 Seconds (25.1-36.5) 06/13/17 19:00 Attending/Attestation - Attestation I have personally seen and examined this patient.: Yes I have fully participated in the care of the patient.: Yes I have reviewed all pertinent clinical information, including history, physical exam and plan: Yes Notes (Text): 06/18/17 13:58 Patient was seen and examined with medical pathology teacher. Agreed with resident assessment and plan. Management plan was discussed in detail with patient Education was provided.
[2017-06-16 12:14] LABS: BLOOD UREA NITROGEN 9 mg/dL (7-21); CALCIUM 8.2 mg/dL (8.4-10.5); CARBON DIOXIDE 28 mmol/L (21-33); CHLORIDE 108 mmol/L (98-107); GFR AFRICAN-AMERICAN > 60; GLUCOSE,RANDOM 93 mg/dL (70-110); POTASSIUM 3.8 mmol/L (3.6-5.0); SODIUM 144 mmol/L (132-148)
--- NOTE | 2017-06-16 14:08 | PN ---
DATE: SUBJECTIVE: The patient denies any chest pain or shortness of breath. He n.p.o. for cystoscopy. PHYSICAL EXAMINATION VITAL SIGNS: Blood pressure of 122/73, heart rate of 76, temperature of 99.4, and respirations of 18. HEENT: Normocephalic. CHEST: Clear. CARDIOVASCULAR: Heart sounds are regular. EXTREMITIES: No edema. LABORATORY DATA: Hemoglobin and hematocrit of 10.8 and 33.0. White count and platelet count are within normal limits. Today's potassium is 3.3. ASSESSMENT: 1. Coronary artery disease status post myocardial infarction and coronary stenting in the past. 2. Abnormal electrocardiogram with evidence of old inferior and anterior infarcts. 3. Hypokalemia. PLAN: The patient did receive K-Dur 20 mEq at as a single oral dose. I would obtain a follow up BNP prior to his cystoscopy and continue Zestril and Toprol. Olvin Victor MD
[2017-06-16] MEDS ORDERED: HYDROmorphone 2 mg/ml ISec IVP PRN (21:30)
--- NOTE | 2017-06-16 22:33 | PCM.URO ---
Urology Progress Note - Objective Lab Studies: Reviewed (cystoscopy tomorrow pm) Lab Results Last 24 Hours: Laboratory Results - last 24 hr 06/16/17 06/16/17 06/16/17 05:50 05:50 11:55 WBC 6.3 RBC 3.34 L Hgb 10.8 L Hct 33.0 L MCV 98.8 MCH 32.3 MCHC 32.7 RDW 16.4 H Plt Count 213 MPV 9.7 Gran % 66.9 Lymph % (Auto) 17.0 L [place] % (Auto) 14.9 H Eos % (Auto) 1.0 L Baso % (Auto) 0.2 Gran # 4.22 Lymph # 1.1 L [place] # 0.9 H Eos # 0.1 Baso # 0.01 Sodium 144 144 Potassium 3.3 L 3.8 Chloride 109 H 108 H Carbon Dioxide 29 28 Anion Gap 9 L 12 BUN 10 9 Creatinine 0.9 0.9 Est GFR ( Amer) > 60 > 60 Est GFR (Non-Af Amer) > 60 > 60 Random Glucose 91 93 Calcium 8.3 L 8.2 L Magnesium 2.0 Total Bilirubin 0.6 AST 18 ALT 28 Alkaline Phosphatase 61 Total Protein 5.5 L Albumin 2.9 L Globulin 2.6 Albumin/Globulin Ratio 1.1 Intake & Output: Intake & Output 06/16/17 06/16/17 06/17/17 06:59 18:59 06:59 Intake Total 240 Output Total 1200 Balance -960 Intake: Oral 240 Output: Urine 1200 Urethral (Galdamez) 1200 Stool 0 Urine/Stool Mix 0 Other: # Bowel Movements 0 Vital Signs: Vital Signs - 24 hr 06/15/17 06/16/17 06/16/17 23:30 00:01 02:00 Temperature 98.0 F Pulse Rate 72 64 Respiratory 20 Rate Blood Pressure 92/62 L 101/69 O2 Sat by Pulse 96 Oximetry 06/16/17 06/16/17 06/16/17 04:00 06:00 09:16 Temperature 99.4 F Pulse Rate 76 76 Respiratory 18 Rate Blood Pressure 111/69 115/71 122/73 O2 Sat by Pulse 94 L Oximetry 06/16/17 06/16/17 06/16/17 10:00 12:00 14:00 Temperature 98.5 F Pulse Rate 60 71 63 Respiratory 20 Rate Blood Pressure 95/58 L O2 Sat by Pulse Oximetry 06/16/17 18:00 Temperature Pulse Rate 63 Respiratory Rate Blood Pressure O2 Sat by Pulse Oximetry
[2017-06-17] MEDS: Sodium Chloride 0.9% 1,000 ML IV SCH ×4 (00:15→22:48)
[2017-06-17] MEDS: HYDROmorphone 2 mg/ml ISec IVP PRN ×5 (01:24→20:19)
[2017-06-17] MEDS: Lidocaine 2% Jelly (30 ml) TOP PRN ×2 (01:24→05:24)
[2017-06-17] MEDS: DiphenhydrAMINE 50 mg/ml Inj IVP PRN ×3 (01:51→20:48)
[2017-06-17 06:58] LABS: BASO # 0.01 K/mm3 (0.0-2.0); BASO % 0.2 % (0.0-3.0); EOS # 0.1 (0.0-0.7); EOS % 1.5 % (1.5-5.0); GRAN # 4.1 (1.4-6.5); GRAN % 67.7 % (50.0-68.0); HEMATOCRIT 32.4 % (42.0-52.0); LYMPH # 1.1 (1.2-3.4); LYMPH % 17.5 % (22.0-35.0); MEAN CELL VOLUME 99.1 fl (80.0-105.0); MEAN CORPUSCULAR HEMOGLOBIN 32.4 pg (25.0-35.0); MEAN CORPUSCULAR HGB CONC 32.7 g/dl (31.0-37.0); MEAN PLATELET VOLUME 9.4 fl (7.0-11.0); MONO # 0.8 (0.1-0.6); MONO % 13.1 % (1.0-6.0); RED CELL DISTRIBUTION WIDTH 16.4 % (11.5-14.5); WHITE BLOOD COUNT 6.1 10^3/ul (4.5-11.0)
[2017-06-17 07:29] LABS: ALB/GLOB RATIO 1.2 (1.1-1.8); ALKALINE PHOSPHATASE 61 U/L (38-126); ALT/SGPT 29 U/L (7-56); AST/SGOT 27 U/L (17-59); BILIRUBIN,TOTAL 0.7 mg/dL (0.2-1.3); BLOOD UREA NITROGEN 8 mg/dL (7-21); CALCIUM 8.2 mg/dL (8.4-10.5); CARBON DIOXIDE 29 mmol/L (21-33); CHLORIDE 107 mmol/L (98-107); GFR AFRICAN-AMERICAN > 60; GLUCOSE,RANDOM 85 mg/dL (70-110); MAGNESIUM 1.9 mg/dL (1.7-2.2); POTASSIUM 3.8 mmol/L (3.6-5.0); SODIUM 143 mmol/L (132-148); TOTAL PROTEIN 5.6 g/dL (5.8-8.3)
[2017-06-17] MEDS: Metoprolol Succinate 50 mg XL Tab PO SCH (09:30)
[2017-06-17] MEDS: oxyCODONE 20 mg ER Tab (oxyCONTIN) PO SCH ×3 (09:31→21:10)
[2017-06-17] MEDS: cefTRIAXone 1 gm 1 GM/100 ML BAG IVPB SCH (09:48)
--- NOTE | 2017-06-17 12:54 | CP.PCM.PN ---
<STEPHANIE MAIER - Last Filed: 06/17/17 12:51> Subjective - Date & Time of Evaluation Date of Evaluation: 06/17/17 Time of Evaluation: 12:51 - Subjective Subjective: Medicine Progress Note: Pt seen and examined at bedside. Pt denies any acute overnight events. Cystoscopy rescheduled to today. Pt reports pain and burning sensation when he feels the need to urinate. Pt denied CP, SOB, nausea, vomiting, diarrhea, CHASE, fatigue, and dizziness. Objective - Vital Signs/Intake and Output Vital Signs (last 24 hours): Temp Pulse Resp BP Pulse Ox 99.1 F 86 20 116/74 97 06/17/17 11:37 06/17/17 11:37 06/17/17 11:37 06/17/17 11:37 06/17/17 09:00 Intake and Output: 06/17/17 06/17/17 06:59 18:59 Intake Total 1620 Output Total 1200 Balance 420 - Medications Medications: Current Medications Alprazolam (Xanax) 0.5 mg PO TID PRN; Protocol PRN Reason: Anxiety Last Admin: 06/16/17 09:16 Dose: 0.5 mg Diphenhydramine HCl (Benadryl) 50 mg IVP Q4H PRN PRN Reason: Anxiety Last Admin: 06/17/17 09:26 Dose: 50 mg Hydromorphone HCl (Dilaudid) 2 mg IVP Q4H PRN PRN Reason: Pain, severe (8-10) Last Admin: 06/17/17 09:21 Dose: 2 mg Ceftriaxone Sodium (Rocephin 1 Gram Ivpb) 1 gm in 100 mls @ 100 mls/hr IVPB DAILY [facility] PRN Reason: Protocol Last Admin: 06/17/17 09:48 Dose: 100 mls/hr Sodium Chloride (Sodium Chloride 0.9%) 1,000 mls @ 100 mls/hr IV .Q10H [facility] Last Admin: 06/17/17 11:26 Dose: 100 mls/hr Lidocaine HCl (Xylocaine 2%) 0 ea TOP Q4H PRN PRN Reason: BLEEDING/PAIN Last Admin: 06/17/17 05:24 Dose: 1 applic Lisinopril (Zestril) 10 mg PO DAILY [facility] Last Admin: 06/17/17 09:31 Dose: 10 mg Metoprolol Succinate (Toprol Xl) 50 mg PO DAILY [facility] Last Admin: 06/17/17 09:30 Dose: 50 mg Oxycodone HCl (Oxycontin Extended Release Tab) 20 mg PO Q12 [facility] Last Admin: 06/17/17 11:28 Dose: 20 mg Pantoprazole Sodium (Protonix Inj) 40 mg IVP DAILY [facility] Last Admin: 06/17/17 09:28 Dose: 40 mg Pregabalin (Lyrica) 150 mg PO BID [facility] Last Admin: 06/17/17 09:30 Dose: 150 mg - Labs Labs: 06/17/17 06:15 06/17/17 06:15 PT 14.2 SECONDS (9.4-12.5) H 06/13/17 19:00 INR 1.30 (0.93-1.08) H 06/13/17 19:00 APTT 35.5 Seconds (25.1-36.5) 06/13/17 19:00 - Head Exam Head Exam: ATRAUMATIC, NORMOCEPHALIC - Eye Exam Eye Exam: EOMI, PERRL - ENT Exam ENT Exam: Mucous Membranes Moist - Neck Exam Neck Exam: Full ROM. absent: Lymphadenopathy, Tenderness, Thyromegaly - Respiratory Exam Respiratory Exam: Clear to Ausculation Bilateral. absent: Accessory Muscle Use , Rales, Rhonchi, Wheezes, Respiratory Distress - Cardiovascular Exam Cardiovascular Exam: RRR, +S1, +S2. absent: Diastolic murmur, Gallop, Rubs, Murmur - GI/Abdominal Exam GI & Abdominal Exam: Soft, Tenderness (suprapubic). absent: Distended, Firm, Guarding, Rebound - Extremities Exam Extremities Exam: Normal Inspection - Back Exam Back Exam: NORMAL INSPECTION - Neurological Exam Neurological Exam: Alert, Awake, Oriented x3 - Psychiatric Exam Psychiatric exam: Normal Affect, Normal Mood - Skin Skin Exam: Dry, Intact, Normal Color, Warm Assessment and Plan - Assessment and Plan (Free Text) Assessment: 61 year old male with a past medical history of hypertension, 3 M.I., nephrolithiasis, abdominal aneurysm (s/p 2 surgeries) admitted for evaluation and treatment for gross hematuria and chest pain. Chest pain has been resolved and ACS ruled out. Plan: 1. Gross hematuria - Abd/pelvis CT Fullness of left renal collecting system/mild hydronephrosis, left hydroureter NO obstructing ureteral calculus Abnormal density within bladder, concerning for hemorrhage or mass Stranding, suggestive of cystitis - Urology consulted Galdamez catheter with irrigation q4 F/u cystoscopy findings - Dilaudid prn for pain - Oxycodone ER q12 [facility] - IV fluids at 100 mls/hr 2. UTI - UA showed moderate Leuk esterase, positive nitrate, large blood - Ceftriaxone 1g IV q24h - Urine grew multiple species, likely contaminated 3. Hypokalemia, resolved - Monitor and replete as needed 4. HTN - Cont home med: Lisinopril, metoprolol - Hold if SBP<90, DBP<60 5. Chest pain, resolved - Cardiology consulted, cont current meds - Troponin negative x3 - EKG showed NSR, inferior infarct age undetermined - Echo showed LVEF 55% - Lipids, A1C WNL 6. H/o abdominal aortic aneurysm - CT showed Aneurysmal dilatation of abdominal aortal (3.3 cm) and bilateral common iliac arteries - Advised routine outpatient follow up to monitor size 7. H/o of CAD - Hold ASA and plavix due to hematuria GI/DVT ppx - Protonix - SCD's Pt seen and discussed in detail with Dr. Kaplan. Jose Maier, PGY1 <Adilene Kaplan - Last Filed: 06/18/17 14:00> Objective - Vital Signs/Intake and Output Vital Signs (last 24 hours): Temp Pulse Resp BP Pulse Ox 98.6 F 78 20 101/61 94 L 06/18/17 11:52 06/18/17 11:52 06/18/17 11:52 06/18/17 11:52 06/17/17 18:53 Intake and Output: 06/18/17 06/18/17 06:59 18:59 Intake Total 1461 Output Total 9300 Balance -4139 - Medications Medications: Current Medications Alprazolam (Xanax) 0.5 mg PO TID PRN; Protocol PRN Reason: Anxiety Last Admin: 06/16/17 09:16 Dose: 0.5 mg Diphenhydramine HCl (Benadryl) 50 mg IVP Q4H PRN PRN Reason: Anxiety Last Admin: 06/18/17 05:28 Dose: 50 mg Hydromorphone HCl (Dilaudid) 2 mg IVP Q4H PRN PRN Reason: Pain, severe (8-10) Last Admin: 06/18/17 13:18 Dose: 2 mg Ceftriaxone Sodium (Rocephin 1 Gram Ivpb) 1 gm in 100 mls @ 100 mls/hr IVPB DAILY [facility] PRN Reason: Protocol Last Admin: 06/18/17 09:27 Dose: 100 mls/hr Sodium Chloride (Sodium Chloride 0.9%) 1,000 mls @ 100 mls/hr IV .Q10H [facility] Last Admin: 06/18/17 09:42 Dose: 100 mls/hr Lidocaine HCl (Xylocaine 2%) 0 ea TOP Q4H PRN PRN Reason: BLEEDING/PAIN Last Admin: 06/17/17 05:24 Dose: 1 applic Lisinopril (Zestril) 10 mg PO DAILY [facility] Last Admin: 06/18/17 09:10 Dose: 10 mg Metoprolol Succinate (Toprol Xl) 50 mg PO DAILY [facility] Last Admin: 06/18/17 09:10 Dose: 50 mg Ondansetron HCl (Zofran Inj) 4 mg IVP ONCE PRN PRN Reason: Nausea/Vomiting Oxycodone HCl (Oxycontin Extended Release Tab) 20 mg PO Q12 [facility] Last Admin: 06/18/17 09:45 Dose: Not Given Pantoprazole Sodium (Protonix Inj) 40 mg IVP DAILY [facility] Last Admin: 06/18/17 09:09 Dose: 40 mg Phenazopyridine HCl (Pyridium) 200 mg PO PC [facility] Last Admin: 06/18/17 09:10 Dose: 200 mg Pregabalin (Lyrica) 150 mg PO BID [facility] Last Admin: 06/18/17 09:10 Dose: 150 mg - Labs Labs: 06/18/17 10:45 06/18/17 10:45 PT 14.2 SECONDS (9.4-12.5) H 06/13/17 19:00 INR 1.30 (0.93-1.08) H 06/13/17 19:00 APTT 35.5 Seconds (25.1-36.5) 06/13/17 19:00 Attending/Attestation - Attestation I have personally seen and examined this patient.: Yes I have fully participated in the care of the patient.: Yes I have reviewed all pertinent clinical information, including history, physical exam and plan: Yes Notes (Text): 06/18/17 13:58 Patient was seen and examined with director of medical staff services. Agreed with resident assessment and plan. 61 yrs old male with PMH of CAD, HTN,PVD with hematuria.Hemoglobin is stable, still having intermittent bleeding and lower abdominal pain. Patient is scheduled for Cystoscopy today. Management plan was discussed in detail with patient Education was provided.
--- NOTE | 2017-06-17 14:05 | PN ---
DATE: SUBJECTIVE: The patient's cystoscopy was postponed for today around noontime. The patient denies any chest pain or shortness of breath. PHYSICAL EXAMINATION: VITAL SIGNS: Blood pressure 116/74, heart rate 86, temperature 99.1, and respirations 20. HEENT: Pale conjunctiva. CHEST: Clear. HEART: S1 and S2 regular. EXTREMITIES: No edema. LABORATORY DATA: Today's hemoglobin and hematocrit 10.6 and 32.4, white count and platelet count are within normal limit. Today's SMA-7 is entirely within normal limit. Calcium is below normal at 8.2. ASSESSMENT: 1. Coronary artery disease, status post myocardial infarction and coronary stenting in the past. 2. Mal hematuria. 3. Anemia. 4. 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 CONDITIONS: Continue current IV Protonix, IV Rocephin, Toprol XL at 50 mg once a day, Zestril 10 mg once a day. The patient will undergo cystoscopy today. Case was discussed with Dr. Pierre, neurologist yesterday. Olvin Victor MD
[2017-06-17] MEDS ORDERED: Midazolam 2 MG/2 ML VIAL ONE ×2 (17:06→17:44)
[2017-06-17] MEDS ORDERED: Etomidate 20 mg/10ml Inj IV ONE (17:06)
[2017-06-17] MEDS ORDERED: Lidocaine 2% Inj (20ml) ONE (17:07)
[2017-06-17] MEDS ORDERED: cefTRIAXone (Rocephin) 1 gm Inj ONE (17:29)
[2017-06-17] MEDS ORDERED: HYDROmorphone 2 mg/ml ISec IVP PRN (18:09)
[2017-06-17] MEDS ORDERED: Lactated Ringer's 1,000 ML IV SCH (18:15)
[2017-06-17] MEDS ORDERED: Liquid Adhesive TOP ONE (18:27)
[2017-06-17] MEDS ORDERED: Lidocaine 2% Jelly (Uro-Jet) ONE (18:27)
[2017-06-18] MEDS: HYDROmorphone 2 mg/ml ISec IVP PRN ×7 (00:21→23:59)
[2017-06-18] MEDS: DiphenhydrAMINE 50 mg/ml Inj IVP PRN ×3 (00:51→17:21)
[2017-06-18] MEDS: Sodium Chloride 0.9% 1,000 ML IV SCH ×3 (07:47→23:57)
[2017-06-18] MEDS: Metoprolol Succinate 50 mg XL Tab PO SCH (09:10)
[2017-06-18] MEDS: cefTRIAXone 1 gm 1 GM/100 ML BAG IVPB SCH (09:27)
[2017-06-18] MEDS: oxyCODONE 20 mg ER Tab (oxyCONTIN) PO SCH (09:45)
[2017-06-18 10:54] LABS: HEMATOCRIT 30.4 % (42.0-52.0); MEAN CELL VOLUME 97.7 fl (80.0-105.0); MEAN CORPUSCULAR HEMOGLOBIN 32.5 pg (25.0-35.0); MEAN CORPUSCULAR HGB CONC 33.2 g/dl (31.0-37.0); MEAN PLATELET VOLUME 9.3 fl (7.0-11.0)
[2017-06-18 11:04] LABS: ALB/GLOB RATIO 1.1 (1.1-1.8); ALKALINE PHOSPHATASE 62 U/L (38-126); ALT/SGPT 26 U/L (7-56); AST/SGOT 23 U/L (17-59); BILIRUBIN,TOTAL 0.8 mg/dL (0.2-1.3); BLOOD UREA NITROGEN 9 mg/dL (7-21); CALCIUM 8.1 mg/dL (8.4-10.5); CARBON DIOXIDE 27 mmol/L (21-33); CHLORIDE 105 mmol/L (98-107); GFR AFRICAN-AMERICAN > 60; GLUCOSE,RANDOM 92 mg/dL (70-110); POTASSIUM 3.2 mmol/L (3.6-5.0); SODIUM 140 mmol/L (132-148); TOTAL PROTEIN 5.6 g/dL (5.8-8.3)
[2017-06-18] MEDS ORDERED: Potassium Chloride 20 mEq ER Tab PO STA (11:27)
--- NOTE | 2017-06-18 11:31 | CP.PCM.PN ---
<STEPHANIE MAIER - Last Filed: 06/18/17 11:28> Subjective - Date & Time of Evaluation Date of Evaluation: 06/18/17 Time of Evaluation: 11:28 - Subjective Subjective: Medicine Progress Note: Pt seen and examined at bedside. Pt is s/p cystoscopy with removal of clots. Pt is on CBI, however he states that pain is intense and feels as if his bladder overfilled on CBI. Pt denied CP, SOB, nausea, vomiting, diarrhea, abdominal pain , fever chills, CHASE, or dizziness. Objective - Vital Signs/Intake and Output Vital Signs (last 24 hours): Temp Pulse Resp BP Pulse Ox 98.3 F 73 15 133/82 94 L 06/17/17 18:53 06/18/17 09:10 06/17/17 18:53 06/18/17 09:10 06/17/17 18:53 Intake and Output: 06/18/17 06/18/17 06:59 18:59 Intake Total 1461 Output Total 9300 Balance -7839 - Medications Medications: Current Medications Alprazolam (Xanax) 0.5 mg PO TID PRN; Protocol PRN Reason: Anxiety Last Admin: 06/16/17 09:16 Dose: 0.5 mg Diphenhydramine HCl (Benadryl) 50 mg IVP Q4H PRN PRN Reason: Anxiety Last Admin: 06/18/17 05:28 Dose: 50 mg Hydromorphone HCl (Dilaudid) 2 mg IVP Q4H PRN PRN Reason: Pain, severe (8-10) Last Admin: 06/18/17 09:09 Dose: 2 mg Ceftriaxone Sodium (Rocephin 1 Gram Ivpb) 1 gm in 100 mls @ 100 mls/hr IVPB DAILY [facility] PRN Reason: Protocol Last Admin: 06/18/17 09:27 Dose: 100 mls/hr Sodium Chloride (Sodium Chloride 0.9%) 1,000 mls @ 100 mls/hr IV .Q10H [facility] Last Admin: 06/18/17 09:42 Dose: 100 mls/hr Lidocaine HCl (Xylocaine 2%) 0 ea TOP Q4H PRN PRN Reason: BLEEDING/PAIN Last Admin: 06/17/17 05:24 Dose: 1 applic Lisinopril (Zestril) 10 mg PO DAILY [facility] Last Admin: 06/18/17 09:10 Dose: 10 mg Metoprolol Succinate (Toprol Xl) 50 mg PO DAILY [facility] Last Admin: 06/18/17 09:10 Dose: 50 mg Ondansetron HCl (Zofran Inj) 4 mg IVP ONCE PRN PRN Reason: Nausea/Vomiting Oxycodone HCl (Oxycontin Extended Release Tab) 20 mg PO Q12 [facility] Last Admin: 06/18/17 09:45 Dose: Not Given Pantoprazole Sodium (Protonix Inj) 40 mg IVP DAILY [facility] Last Admin: 06/18/17 09:09 Dose: 40 mg Phenazopyridine HCl (Pyridium) 200 mg PO PC [facility] Last Admin: 06/18/17 09:10 Dose: 200 mg Potassium Chloride (K-Dur 20 Meq Er Tab) 40 meq PO STAT [facility] Stop: 06/18/17 11:28 Pregabalin (Lyrica) 150 mg PO BID [facility] Last Admin: 06/18/17 09:10 Dose: 150 mg - Labs Labs: 06/18/17 10:45 06/18/17 10:45 PT 14.2 SECONDS (9.4-12.5) H 06/13/17 19:00 INR 1.30 (0.93-1.08) H 06/13/17 19:00 APTT 35.5 Seconds (25.1-36.5) 06/13/17 19:00 - Constitutional Appears: No Acute Distress - Head Exam Head Exam: ATRAUMATIC, NORMOCEPHALIC - Eye Exam Eye Exam: EOMI, PERRL - ENT Exam ENT Exam: Mucous Membranes Moist - Neck Exam Neck Exam: Full ROM. absent: Lymphadenopathy, Tenderness, Thyromegaly - Respiratory Exam Respiratory Exam: Clear to Ausculation Bilateral. absent: Rales, Rhonchi, Wheezes - Cardiovascular Exam Cardiovascular Exam: RRR, +S1, +S2. absent: Diastolic murmur, Gallop, Rubs, Murmur - GI/Abdominal Exam GI & Abdominal Exam: Soft, Tenderness (suprapubic). absent: Distended, Guarding , Mass, Rebound - Exam Additional comments: Clear red urine per sosa, no shea blood. - Extremities Exam Extremities Exam: Normal Inspection - Back Exam Back Exam: NORMAL INSPECTION - Neurological Exam Neurological Exam: Alert, Awake, Oriented x3 - Psychiatric Exam Psychiatric exam: Normal Affect, Normal Mood - Skin Skin Exam: Dry, Intact, Normal Color, Warm Assessment and Plan - Assessment and Plan (Free Text) Assessment: 61 year old male with a past medical history of hypertension, 3 M.I., nephrolithiasis, abdominal aneurysm (s/p 2 surgeries) admitted for evaluation and treatment for gross hematuria and chest pain. Chest pain has been resolved and ACS ruled out. Plan: 1. Gross hematuria - Abd/pelvis CT Fullness of left renal collecting system/mild hydronephrosis, left hydroureter NO obstructing ureteral calculus Abnormal density within bladder, concerning for hemorrhage or mass Stranding, suggestive of cystitis - Urology consulted Cystoscopy with evaluation of clots on 06/17/17 CBI as tolerated due to pain, but advised patient should be continuous - Urine per sosa clear red with some clotting, Pyridium could be contributory to color - H/H stable s/p cystoscopy - Dilaudid prn for pain - Oxycodone ER q12 [facility] - IV fluids at 100 mls/hr 2. UTI - UA showed moderate Leuk esterase, positive nitrate, large blood - Ceftriaxone 1g IV q24h - Urine grew multiple species, likely contaminated 3. Hypokalemia - K 3.2 - PO potassium - Monitor and replete as needed 4. HTN - Cont home med: Lisinopril, metoprolol - Hold if SBP<90, DBP<60 5. Chest pain, resolved - Cardiology consulted, cont current meds - Troponin negative x3 - EKG showed NSR, inferior infarct age undetermined - Echo showed LVEF 55% - Lipids, A1C WNL 6. H/o abdominal aortic aneurysm - CT showed Aneurysmal dilatation of abdominal aortal (3.3 cm) and bilateral common iliac arteries - Advised outpatient follow up to monitor size 7. H/o of CAD - Hold ASA and plavix due to hematuria GI/DVT ppx - Protonix - SCD's Pt seen and discussed in detail with Dr. Kaplan. Jose Maier, PGY1 <Adilene Kaplan - Last Filed: 06/18/17 14:10> Objective - Vital Signs/Intake and Output Vital Signs (last 24 hours): Temp Pulse Resp BP Pulse Ox 98.6 F 78 20 101/61 94 L 06/18/17 11:52 06/18/17 11:52 06/18/17 11:52 06/18/17 11:52 06/17/17 18:53 Intake and Output: 06/18/17 06/18/17 06:59 18:59 Intake Total 1461 Output Total 9300 Balance -7839 - Medications Medications: Current Medications Alprazolam (Xanax) 0.5 mg PO TID PRN; Protocol PRN Reason: Anxiety Last Admin: 06/16/17 09:16 Dose: 0.5 mg Diphenhydramine HCl (Benadryl) 50 mg IVP Q4H PRN PRN Reason: Anxiety Last Admin: 06/18/17 05:28 Dose: 50 mg Hydromorphone HCl (Dilaudid) 2 mg IVP Q4H PRN PRN Reason: Pain, severe (8-10) Last Admin: 06/18/17 13:18 Dose: 2 mg Ceftriaxone Sodium (Rocephin 1 Gram Ivpb) 1 gm in 100 mls @ 100 mls/hr IVPB DAILY [facility] PRN Reason: Protocol Last Admin: 06/18/17 09:27 Dose: 100 mls/hr Sodium Chloride (Sodium Chloride 0.9%) 1,000 mls @ 100 mls/hr IV .Q10H [facility] Last Admin: 06/18/17 09:42 Dose: 100 mls/hr Lidocaine HCl (Xylocaine 2%) 0 ea TOP Q4H PRN PRN Reason: BLEEDING/PAIN Last Admin: 06/17/17 05:24 Dose: 1 applic Lisinopril (Zestril) 10 mg PO DAILY [facility] Last Admin: 06/18/17 09:10 Dose: 10 mg Metoprolol Succinate (Toprol Xl) 50 mg PO DAILY [facility] Last Admin: 06/18/17 09:10 Dose: 50 mg Ondansetron HCl (Zofran Inj) 4 mg IVP ONCE PRN PRN Reason: Nausea/Vomiting Oxycodone HCl (Oxycontin Extended Release Tab) 20 mg PO Q12 [facility] Last Admin: 06/18/17 09:45 Dose: Not Given Pantoprazole Sodium (Protonix Inj) 40 mg IVP DAILY [facility] Last Admin: 06/18/17 09:09 Dose: 40 mg Phenazopyridine HCl (Pyridium) 200 mg PO PC [facility] Last Admin: 06/18/17 09:10 Dose: 200 mg Potassium Chloride (Klor-Con 10) 40 meq PO BRK ONE Stop: 06/18/17 16:01 Pregabalin (Lyrica) 150 mg PO BID [facility] Last Admin: 06/18/17 09:10 Dose: 150 mg - Labs Labs: 06/18/17 10:45 06/18/17 10:45 PT 14.2 SECONDS (9.4-12.5) H 06/13/17 19:00 INR 1.30 (0.93-1.08) H 06/13/17 19:00 APTT 35.5 Seconds (25.1-36.5) 06/13/17 19:00 Attending/Attestation - Attestation I have personally seen and examined this patient.: Yes I have fully participated in the care of the patient.: Yes I have reviewed all pertinent clinical information, including history, physical exam and plan: Yes Notes (Text): 06/18/17 14:07 Patient was seen and examined with medical affairs specialist. Agreed with resident assessment and plan. 61 yrs old male with PMH of CAD,htn,Hyperlipidemia, PVD with hematuria, he is SP cystoscopy yesterday, refused 3 way bladder irrigation since yesterday.This was discussed in detail with patient. Hemoglobin is stable, we will continue monitoring. Hypokalemia, electrolyte are replaced, Management plan was discussed in detail with patient Education was provided.
[2017-06-18] MEDS ORDERED: Potassium Chloride 10 mEq ER Tab PO ONE (16:00)
--- NOTE | 2017-06-18 16:55 | CARD ---
APPROVED REPORT EKG Measurement Heart [id number] <Conclusion> Normal sinus rhythm Inferior infarct, age undetermined Anteroseptal infarct, age undetermined Abnormal ECG
[2017-06-19] MEDS: oxyCODONE 20 mg ER Tab (oxyCONTIN) PO SCH ×3 (00:08→21:02)
[2017-06-19] MEDS: HYDROmorphone 2 mg/ml ISec IVP PRN ×2 (03:30→07:01)
[2017-06-19] MEDS: DiphenhydrAMINE 50 mg/ml Inj IVP PRN ×2 (03:52→12:19)
[2017-06-19 06:40] LABS: HEMATOCRIT 29.9 % (42.0-52.0); MEAN CORPUSCULAR HEMOGLOBIN 32.5 pg (25.0-35.0); MEAN CORPUSCULAR HGB CONC 33.1 g/dl (31.0-37.0); MEAN PLATELET VOLUME 10.3 fl (7.0-11.0); RED CELL DISTRIBUTION WIDTH 16.3 % (11.5-14.5); WHITE BLOOD COUNT 6.5 10^3/ul (4.5-11.0)
[2017-06-19 06:59] LABS: ALB/GLOB RATIO 1.1 (1.1-1.8); ALKALINE PHOSPHATASE 57 U/L (38-126); ALT/SGPT 27 U/L (7-56); AST/SGOT 19 U/L (17-59); BILIRUBIN,TOTAL 0.6 mg/dL (0.2-1.3); BLOOD UREA NITROGEN 10 mg/dL (7-21); CALCIUM 8.1 mg/dL (8.4-10.5); CARBON DIOXIDE 28 mmol/L (21-33); CHLORIDE 109 mmol/L (98-107); GFR AFRICAN-AMERICAN > 60; GLUCOSE,RANDOM 95 mg/dL (70-110); POTASSIUM 3.4 mmol/L (3.6-5.0); SODIUM 143 mmol/L (132-148); TOTAL PROTEIN 5.3 g/dL (5.8-8.3)
[2017-06-19] MEDS ORDERED: Potassium Chloride 20 mEq ER Tab PO STA (07:30)
[2017-06-19] MEDS: Sodium Chloride 0.9% 1,000 ML IV SCH ×2 (08:15→15:50)
[2017-06-19] MEDS: cefTRIAXone 1 gm 1 GM/100 ML BAG IVPB SCH (09:31)
[2017-06-19] MEDS: Metoprolol Succinate 50 mg XL Tab PO SCH (09:32)
[2017-06-19] MEDS: HYDROmorphone 1 mg/ml ISec IVP PRN ×4 (10:56→23:06)
[2017-06-19] MEDS: POLYETHYLENE GLYCOL 3350 17 GM/Dose PACKET PO SCH (11:49)
--- NOTE | 2017-06-19 15:05 | CP.PCM.PN ---
<STEPHANIE MAIER - Last Filed: 06/19/17 15:01> Subjective - Date & Time of Evaluation Date of Evaluation: 06/19/17 Time of Evaluation: 15:01 - Subjective Subjective: Medicine Progress Note: Pt seen and examined at bedside. Pt denies any acute overnight events. Pt states bladder spasms unchanged, burning pain. Pt states that there appears to be no blood in urine anymore. Pt denied CP, SOB, nausea, vomiting, diarrhea, constipation, CHASE, or dizziness. Objective - Vital Signs/Intake and Output Vital Signs (last 24 hours): Temp Pulse Resp BP Pulse Ox 98.8 F 67 18 102/60 95 06/19/17 05:37 06/19/17 12:00 06/19/17 12:00 06/19/17 12:00 06/19/17 05:37 Intake and Output: 06/19/17 06/19/17 06:59 18:59 Intake Total 1480 Output Total 1600 Balance -120 - Medications Medications: Current Medications Alprazolam (Xanax) 0.5 mg PO TID PRN; Protocol PRN Reason: Anxiety Last Admin: 06/16/17 09:16 Dose: 0.5 mg Diphenhydramine HCl (Benadryl) 50 mg IVP Q4H PRN PRN Reason: Anxiety Last Admin: 06/19/17 12:19 Dose: 50 mg Hydromorphone HCl (Dilaudid) 2 mg IVP Q4H PRN PRN Reason: Pain, severe (8-10) Last Admin: 06/19/17 10:56 Dose: 2 mg Ceftriaxone Sodium (Rocephin 1 Gram Ivpb) 1 gm in 100 mls @ 100 mls/hr IVPB DAILY [facility] PRN Reason: Protocol Last Admin: 06/19/17 09:31 Dose: 100 mls/hr Sodium Chloride (Sodium Chloride 0.9%) 1,000 mls @ 100 mls/hr IV .Q10H [facility] Last Admin: 06/19/17 08:15 Dose: Not Given Lidocaine HCl (Xylocaine 2%) 0 ea TOP Q4H PRN PRN Reason: BLEEDING/PAIN Last Admin: 06/17/17 05:24 Dose: 1 applic Lisinopril (Zestril) 10 mg PO DAILY [facility] Last Admin: 06/19/17 09:33 Dose: 10 mg Metoprolol Succinate (Toprol Xl) 50 mg PO DAILY [facility] Last Admin: 06/19/17 09:32 Dose: 50 mg Ondansetron HCl (Zofran Inj) 4 mg IVP ONCE PRN PRN Reason: Nausea/Vomiting Oxycodone HCl (Oxycontin Extended Release Tab) 20 mg PO Q12 [facility] Last Admin: 06/19/17 09:32 Dose: 20 mg Pantoprazole Sodium (Protonix Inj) 40 mg IVP DAILY [facility] Last Admin: 06/19/17 09:31 Dose: 40 mg Phenazopyridine HCl (Pyridium) 200 mg PO PC [facility] Last Admin: 06/18/17 09:10 Dose: 200 mg Polyethylene Glycol (Miralax) 17 gm PO DAILY [facility] Last Admin: 06/19/17 11:49 Dose: 17 gm Pregabalin (Lyrica) 150 mg PO BID [facility] Last Admin: 06/19/17 09:32 Dose: 150 mg Tamsulosin HCl (Flomax) 0.4 mg PO DAILY [facility] - Labs Labs: 06/19/17 06:15 06/19/17 06:15 PT 14.2 SECONDS (9.4-12.5) H 06/13/17 19:00 INR 1.30 (0.93-1.08) H 06/13/17 19:00 APTT 35.5 Seconds (25.1-36.5) 06/13/17 19:00 - Constitutional Appears: No Acute Distress - Head Exam Head Exam: ATRAUMATIC, NORMOCEPHALIC - Eye Exam Eye Exam: EOMI, PERRL - ENT Exam ENT Exam: Mucous Membranes Moist - Neck Exam Neck Exam: Full ROM. absent: Lymphadenopathy, Tenderness, Thyromegaly - Respiratory Exam Respiratory Exam: Clear to Ausculation Bilateral. absent: Accessory Muscle Use , Rales, Rhonchi, Wheezes, Respiratory Distress - Cardiovascular Exam Cardiovascular Exam: RRR, +S1, +S2. absent: Diastolic murmur, Gallop, Rubs, Murmur - GI/Abdominal Exam GI & Abdominal Exam: Soft, Tenderness (suprapubic). absent: Distended, Firm, Guarding, Rebound - Exam Additional comments: Urine yudith color per sosa - Extremities Exam Extremities Exam: Normal Inspection - Back Exam Back Exam: NORMAL INSPECTION - Neurological Exam Neurological Exam: Alert, Awake, Oriented x3 - Psychiatric Exam Psychiatric exam: Normal Affect, Normal Mood - Skin Skin Exam: Dry, Intact, Normal Color, Warm Assessment and Plan - Assessment and Plan (Free Text) Assessment: 61 year old male with a past medical history of hypertension, 3 M.I., nephrolithiasis, abdominal aneurysm (s/p 2 surgeries) admitted for evaluation and treatment for gross hematuria and chest pain. Chest pain has been resolved and ACS ruled out. Plan: 1. Gross hematuria - Abd/pelvis CT Fullness of left renal collecting system/mild hydronephrosis, left hydroureter NO obstructing ureteral calculus Abnormal density within bladder, concerning for hemorrhage or mass Stranding, suggestive of cystitis - Urology consulted Cystoscopy with evaluation of clots on 06/17/17 D/C CBI D/C sosa tomorrow, clear from uro standpoint to dc tomorrow - Urine per sosa clear red with some clotting, Pyridium could be contributory to color - H/H stable s/p cystoscopy - Dilaudid prn for pain - Oxycodone ER q12 judith - IV fluids at 100 mls/hr 2. UTI - UA showed moderate Leuk esterase, positive nitrate, large blood - Ceftriaxone 1g IV q24h - Urine grew multiple species, likely contaminated 3. Hypokalemia - K 3.4 - PO potassium - Monitor and replete as needed 4. HTN - Cont home med: Lisinopril, metoprolol - Hold if SBP<90, DBP<60 5. Chest pain, resolved - Cardiology consulted, cont current meds - Troponin negative x3 - EKG showed NSR, inferior infarct age undetermined - Echo showed LVEF 55% - Lipids, A1C WNL 6. H/o abdominal aortic aneurysm - CT showed Aneurysmal dilatation of abdominal aortal (3.3 cm) and bilateral common iliac arteries - Advised outpatient follow up to monitor size 7. H/o of CAD - Hold ASA and plavix due to hematuria GI/DVT ppx - Protonix - SCD's Pt seen and discussed in detail with Dr. Kaplan. Jose Maier, PGY1 <Adilene Kaplan - Last Filed: 06/20/17 15:55> Objective - Vital Signs/Intake and Output Vital Signs (last 24 hours): Temp Pulse Resp BP Pulse Ox 98.9 F 62 20 130/84 96 06/20/17 06:00 06/20/17 06:00 06/20/17 06:00 06/20/17 09:33 06/20/17 06:00 Intake and Output: 06/20/17 06/20/17 06:59 18:59 Intake Total 480 1680 Output Total 7499 750 Balance -1495 930 - Medications Medications: Current Medications Alprazolam (Xanax) 0.5 mg PO TID PRN; Protocol PRN Reason: Anxiety Last Admin: 06/16/17 09:16 Dose: 0.5 mg Clopidogrel Bisulfate (Plavix) 75 mg PO DAILY [facility] Diphenhydramine HCl (Benadryl) 50 mg IVP Q4H PRN PRN Reason: Anxiety Last Admin: 06/20/17 04:35 Dose: 50 mg Hydromorphone HCl (Dilaudid) 2 mg IVP Q4H PRN PRN Reason: Pain, severe (8-10) Stop: 06/22/17 07:09 Last Admin: 06/20/17 14:54 Dose: 2 mg Ceftriaxone Sodium (Rocephin 1 Gram Ivpb) 1 gm in 100 mls @ 100 mls/hr IVPB DAILY [facility] PRN Reason: Protocol Last Admin: 06/20/17 09:34 Dose: 100 mls/hr Lidocaine HCl (Xylocaine 2%) 0 ea TOP Q4H PRN PRN Reason: BLEEDING/PAIN Last Admin: 06/17/17 05:24 Dose: 1 applic Lisinopril (Zestril) 10 mg PO DAILY [facility] Last Admin: 06/20/17 09:33 Dose: 10 mg Metoprolol Succinate (Toprol Xl) 50 mg PO DAILY [facility] Last Admin: 06/20/17 09:33 Dose: 50 mg Ondansetron HCl (Zofran Inj) 4 mg IVP ONCE PRN PRN Reason: Nausea/Vomiting Oxycodone HCl (Oxycontin Extended Release Tab) 20 mg PO Q12 [facility] Last Admin: 06/20/17 10:41 Dose: 20 mg Pantoprazole Sodium (Protonix Inj) 40 mg IVP DAILY [facility] Last Admin: 06/20/17 09:34 Dose: 40 mg Phenazopyridine HCl (Pyridium) 200 mg PO [facility] Last Admin: 06/20/17 14:54 Dose: 200 mg Polyethylene Glycol (Miralax) 17 gm PO DAILY [facility] Last Admin: 06/20/17 09:34 Dose: 17 gm Pregabalin (Lyrica) 150 mg PO BID [facility] Last Admin: 06/20/17 09:34 Dose: 150 mg Tamsulosin HCl (Flomax) 0.4 mg PO DAILY [facility] Last Admin: 06/20/17 09:34 Dose: 0.4 mg - Labs Labs: 06/20/17 06:00 06/20/17 06:00 PT 14.2 SECONDS (9.4-12.5) H 06/13/17 19:00 INR 1.30 (0.93-1.08) H 06/13/17 19:00 APTT 35.5 Seconds (25.1-36.5) 06/13/17 19:00 Attending/Attestation - Attestation I have personally seen and examined this patient.: Yes I have fully participated in the care of the patient.: Yes I have reviewed all pertinent clinical information, including history, physical exam and plan: Yes Notes (Text): 06/20/17 15:53 Patient was seen and examined with senior medical transcriptionist. Agreed with resident assessment and plan. 61 yrs old male with PMH of CAD,htn,Hyperlipidemia, PVD with hematuria, underwent cystoscopy .Hematuria has improved.Hemoglobin is stable, we will continue monitoring. Patient case was discussed with Urology by senior medical transcriptionist, plan to remove Folley catheter in 24 hour, if no further bleeding. Plavix can be restarted in 24 hour. Management plan was discussed in detail with patient Education was provided.
[2017-06-20 01:13] VITALS: O2SAT 96
[2017-06-20] MEDS ORDERED: HYDROmorphone 2 mg/ml ISec IVP PRN ×2 (03:17→03:19)
[2017-06-20] MEDS ORDERED: HYDROmorphone 1 mg/ml ISec IVP PRN (03:17)
[2017-06-20] MEDS: DiphenhydrAMINE 50 mg/ml Inj IVP PRN ×2 (04:35→19:47)
[2017-06-20] MEDS: HYDROmorphone 1 mg/ml ISec IVP PRN ×5 (07:00→23:24)
[2017-06-20 07:04] LABS: ALKALINE PHOSPHATASE 55 U/L (38-126); ALT/SGPT 28 U/L (7-56); AST/SGOT 19 U/L (17-59); BILIRUBIN,TOTAL 0.5 mg/dL (0.2-1.3); BLOOD UREA NITROGEN 10 mg/dL (7-21); CALCIUM 8.2 mg/dL (8.4-10.5); CARBON DIOXIDE 29 mmol/L (21-33); CHLORIDE 108 mmol/L (95-110); GFR AFRICAN-AMERICAN > 60; GLUCOSE,RANDOM 102 mg/dL (70-110); POTASSIUM 3.3 mmol/L (3.6-5.0); SODIUM 143 mmol/L (132-148); TOTAL PROTEIN 5.3 g/dL (5.8-8.3)
[2017-06-20 07:45] LABS: HEMATOCRIT 29.4 % (42.0-52.0); MEAN CELL VOLUME 98.7 fl (80.0-105.0); MEAN CORPUSCULAR HEMOGLOBIN 32.6 pg (25.0-35.0); RED CELL DISTRIBUTION WIDTH 16.2 % (11.5-14.5); WHITE BLOOD COUNT 5.5 10^3/ul (4.5-11.0)
[2017-06-20] MEDS: Sodium Chloride 0.9% 1,000 ML IV SCH ×2 (08:40→18:29)
[2017-06-20] MEDS ORDERED: Potassium Chloride 20 mEq ER Tab PO STA (09:31)
[2017-06-20] MEDS: Metoprolol Succinate 50 mg XL Tab PO SCH (09:33)
[2017-06-20] MEDS: POLYETHYLENE GLYCOL 3350 17 GM/Dose PACKET PO SCH (09:34)
[2017-06-20] MEDS: cefTRIAXone 1 gm 1 GM/100 ML BAG IVPB SCH (09:34)
[2017-06-20] MEDS ORDERED: HYDROmorphone 1 mg/ml ISec IVP STA (09:41)
[2017-06-20] MEDS: oxyCODONE 20 mg ER Tab (oxyCONTIN) PO SCH ×2 (10:41→21:42)
--- NOTE | 2017-06-20 14:26 | CP.PCM.PN ---
<STEPHANIE MAIER - Last Filed: 06/20/17 14:23> Subjective - Date & Time of Evaluation Date of Evaluation: 06/20/17 Time of Evaluation: 14:23 - Subjective Subjective: Medicine Progress Note: Pt seen and examined at bedside. Pt denied any acute overnight events. Sosa was removed, per urology. Pt states that he feels incontinent now that sosa is out. Pt states bladder pain is still present, but not as intense. Pt denied CP, SOB, nausea, vomiting, diarrhea, constipation, abdominal pain, CHASE, or dizziness. Objective - Vital Signs/Intake and Output Vital Signs (last 24 hours): Temp Pulse Resp BP Pulse Ox 98.9 F 62 20 130/84 96 06/20/17 06:00 06/20/17 06:00 06/20/17 06:00 06/20/17 09:33 06/20/17 06:00 Intake and Output: 06/20/17 06/20/17 06:59 18:59 Intake Total 480 1200 Output Total 1975 Balance -1495 1200 - Medications Medications: Current Medications Alprazolam (Xanax) 0.5 mg PO TID PRN; Protocol PRN Reason: Anxiety Last Admin: 06/16/17 09:16 Dose: 0.5 mg Clopidogrel Bisulfate (Plavix) 75 mg PO DAILY [facility] Diphenhydramine HCl (Benadryl) 50 mg IVP Q4H PRN PRN Reason: Anxiety Last Admin: 06/20/17 04:35 Dose: 50 mg Hydromorphone HCl (Dilaudid) 2 mg IVP Q4H PRN PRN Reason: Pain, severe (8-10) Stop: 06/22/17 07:09 Last Admin: 06/20/17 10:24 Dose: 2 mg Ceftriaxone Sodium (Rocephin 1 Gram Ivpb) 1 gm in 100 mls @ 100 mls/hr IVPB DAILY [facility] PRN Reason: Protocol Last Admin: 06/20/17 09:34 Dose: 100 mls/hr Lidocaine HCl (Xylocaine 2%) 0 ea TOP Q4H PRN PRN Reason: BLEEDING/PAIN Last Admin: 06/17/17 05:24 Dose: 1 applic Lisinopril (Zestril) 10 mg PO DAILY [facility] Last Admin: 06/20/17 09:33 Dose: 10 mg Metoprolol Succinate (Toprol Xl) 50 mg PO DAILY [facility] Last Admin: 06/20/17 09:33 Dose: 50 mg Ondansetron HCl (Zofran Inj) 4 mg IVP ONCE PRN PRN Reason: Nausea/Vomiting Oxycodone HCl (Oxycontin Extended Release Tab) 20 mg PO Q12 [facility] Last Admin: 06/20/17 10:41 Dose: 20 mg Pantoprazole Sodium (Protonix Inj) 40 mg IVP DAILY [facility] Last Admin: 06/20/17 09:34 Dose: 40 mg Phenazopyridine HCl (Pyridium) 200 mg PO PC [facility] Last Admin: 06/20/17 09:34 Dose: 200 mg Polyethylene Glycol (Miralax) 17 gm PO DAILY [facility] Last Admin: 06/20/17 09:34 Dose: 17 gm Pregabalin (Lyrica) 150 mg PO BID [facility] Last Admin: 06/20/17 09:34 Dose: 150 mg Tamsulosin HCl (Flomax) 0.4 mg PO DAILY [facility] Last Admin: 06/20/17 09:34 Dose: 0.4 mg - Labs Labs: 06/20/17 06:00 06/20/17 06:00 PT 14.2 SECONDS (9.4-12.5) H 06/13/17 19:00 INR 1.30 (0.93-1.08) H 06/13/17 19:00 APTT 35.5 Seconds (25.1-36.5) 06/13/17 19:00 - Constitutional Appears: No Acute Distress - Head Exam Head Exam: ATRAUMATIC, NORMAL INSPECTION, NORMOCEPHALIC - Eye Exam Eye Exam: EOMI, Normal appearance, PERRL - ENT Exam ENT Exam: Mucous Membranes Moist - Neck Exam Neck Exam: Full ROM. absent: Lymphadenopathy, Tenderness, Thyromegaly - Respiratory Exam Respiratory Exam: Clear to Ausculation Bilateral. absent: Accessory Muscle Use , Rales, Rhonchi, Wheezes, Respiratory Distress - Cardiovascular Exam Cardiovascular Exam: RRR, +S1, +S2. absent: Diastolic murmur, Gallop, Rubs, Murmur - GI/Abdominal Exam GI & Abdominal Exam: Guarding, Soft, Tenderness (suprapubic). absent: Distended , Rigid, Mass, Rebound - Exam Additional comments: Urine dark yudith color - Extremities Exam Extremities Exam: Normal Inspection - Back Exam Back Exam: NORMAL INSPECTION - Neurological Exam Neurological Exam: Alert, Awake, Normal Gait, Oriented x3 - Psychiatric Exam Psychiatric exam: Normal Affect, Normal Mood - Skin Skin Exam: Dry, Intact, Normal Color, Warm Assessment and Plan - Assessment and Plan (Free Text) Assessment: 61 year old male with a past medical history of hypertension, 3 M.I., nephrolithiasis, abdominal aneurysm (s/p 2 surgeries) admitted for evaluation and treatment for gross hematuria and chest pain. Chest pain has been resolved and ACS ruled out. Plan: 1. Gross hematuria - Abd/pelvis CT Fullness of left renal collecting system/mild hydronephrosis, left hydroureter NO obstructing ureteral calculus Abnormal density within bladder, concerning for hemorrhage or mass Stranding, suggestive of cystitis - Urology consulted Cystoscopy with evaluation of clots on 06/17/17 D/C sosa, clear from uro standpoint to dc Bladder scan ordered due to incontinence, showed 50 ml - No hematuria - H/H stable s/p cystoscopy - Dilaudid prn for pain - Oxycodone ER q12 [facility] 2. UTI - UA showed moderate Leuk esterase, positive nitrate, large blood - Ceftriaxone 1g IV q24h - Urine grew multiple species, likely contaminated 3. Hypokalemia - K 3.3 - PO potassium - Monitor and replete as needed 4. HTN - Cont home med: Lisinopril, metoprolol - Hold if SBP<90, DBP<60 5. Chest pain, resolved - Cardiology consulted, cont current meds - Troponin negative x3 - EKG showed NSR, inferior infarct age undetermined - Echo showed LVEF 55% - Lipids, A1C WNL 6. H/o abdominal aortic aneurysm - CT showed Aneurysmal dilatation of abdominal aortal (3.3 cm) and bilateral common iliac arteries - Advised outpatient follow up to monitor size 7. H/o of CAD - Plavix resumed, per urology GI/DVT ppx - Protonix - SCD's Pt seen and discussed in detail with Dr. Kaplan. Jose Maier, PGY1 <Adilene Kaplan - Last Filed: 06/20/17 15:58> Objective - Vital Signs/Intake and Output Vital Signs (last 24 hours): Temp Pulse Resp BP Pulse Ox 98.9 F 62 20 130/84 96 06/20/17 06:00 06/20/17 06:00 06/20/17 06:00 06/20/17 09:33 06/20/17 06:00 Intake and Output: 06/20/17 06/20/17 06:59 18:59 Intake Total 480 1680 Output Total 9908 889 Balance -1495 930 - Medications Medications: Current Medications Alprazolam (Xanax) 0.5 mg PO TID PRN; Protocol PRN Reason: Anxiety Last Admin: 06/16/17 09:16 Dose: 0.5 mg Clopidogrel Bisulfate (Plavix) 75 mg PO DAILY [facility] Diphenhydramine HCl (Benadryl) 50 mg IVP Q4H PRN PRN Reason: Anxiety Last Admin: 06/20/17 04:35 Dose: 50 mg Hydromorphone HCl (Dilaudid) 2 mg IVP Q4H PRN PRN Reason: Pain, severe (8-10) Stop: 06/22/17 07:09 Last Admin: 06/20/17 14:54 Dose: 2 mg Ceftriaxone Sodium (Rocephin 1 Gram Ivpb) 1 gm in 100 mls @ 100 mls/hr IVPB DAILY [facility] PRN Reason: Protocol Last Admin: 06/20/17 09:34 Dose: 100 mls/hr Lidocaine HCl (Xylocaine 2%) 0 ea TOP Q4H PRN PRN Reason: BLEEDING/PAIN Last Admin: 06/17/17 05:24 Dose: 1 applic Lisinopril (Zestril) 10 mg PO DAILY [facility] Last Admin: 06/20/17 09:33 Dose: 10 mg Metoprolol Succinate (Toprol Xl) 50 mg PO DAILY [facility] Last Admin: 06/20/17 09:33 Dose: 50 mg Ondansetron HCl (Zofran Inj) 4 mg IVP ONCE PRN PRN Reason: Nausea/Vomiting Oxycodone HCl (Oxycontin Extended Release Tab) 20 mg PO Q12 [facility] Last Admin: 06/20/17 10:41 Dose: 20 mg Pantoprazole Sodium (Protonix Inj) 40 mg IVP DAILY [facility] Last Admin: 06/20/17 09:34 Dose: 40 mg Phenazopyridine HCl (Pyridium) 200 mg PO PC [facility] Last Admin: 06/20/17 14:54 Dose: 200 mg Polyethylene Glycol (Miralax) 17 gm PO DAILY [facility] Last Admin: 06/20/17 09:34 Dose: 17 gm Pregabalin (Lyrica) 150 mg PO BID [facility] Last Admin: 06/20/17 09:34 Dose: 150 mg Tamsulosin HCl (Flomax) 0.4 mg PO DAILY [facility] Last Admin: 06/20/17 09:34 Dose: 0.4 mg - Labs Labs: 06/20/17 06:00 06/20/17 06:00 PT 14.2 SECONDS (9.4-12.5) H 06/13/17 19:00 INR 1.30 (0.93-1.08) H 06/13/17 19:00 APTT 35.5 Seconds (25.1-36.5) 06/13/17 19:00 Attending/Attestation - Attestation I have personally seen and examined this patient.: Yes I have fully participated in the care of the patient.: Yes I have reviewed all pertinent clinical information, including history, physical exam and plan: Yes Notes (Text): 06/20/17 15:56 Patient was seen and examined with medical director/head team physician. Agreed with resident assessment and plan. 61 yrs old male with PMH of CAD,htn,Hyperlipidemia, PVD with hematuria, he is SP cystoscoscopy, no further hematuria. Hemoglobin is stable,Folley cathter is discontinued, still c/o bladder spasm and pain, will monitor. Plavix can be restarted in 24 hour if no further bleeding.\ Management plan was discussed in detail with patient Education was provided.
[2017-06-21] MEDS: HYDROmorphone 1 mg/ml ISec IVP PRN ×3 (03:07→11:20)
[2017-06-21] MEDS: DiphenhydrAMINE 50 mg/ml Inj IVP PRN (05:48)
[2017-06-21 08:01] LABS: HEMATOCRIT 31.8 % (42.0-52.0); MEAN CELL VOLUME 98.5 fl (80.0-105.0); MEAN CORPUSCULAR HEMOGLOBIN 31.6 pg (25.0-35.0); MEAN CORPUSCULAR HGB CONC 32.1 g/dl (31.0-37.0); MEAN PLATELET VOLUME 10.6 fl (7.0-11.0); RED CELL DISTRIBUTION WIDTH 15.9 % (11.5-14.5); WHITE BLOOD COUNT 4.8 10^3/ul (4.5-11.0)
[2017-06-21 08:19] LABS: ALB/GLOB RATIO 1.1 (1.1-1.8); ALKALINE PHOSPHATASE 66 U/L (38-126); ALT/SGPT 30 U/L (7-56); AST/SGOT 22 U/L (17-59); BILIRUBIN,TOTAL 0.7 mg/dL (0.2-1.3); BLOOD UREA NITROGEN 9 mg/dL (7-21); CALCIUM 8.4 mg/dL (8.4-10.5); CARBON DIOXIDE 30 mmol/L (21-33); CHLORIDE 106 mmol/L (98-107); GFR AFRICAN-AMERICAN > 60; GLUCOSE,RANDOM 100 mg/dL (70-110); POTASSIUM 3.3 mmol/L (3.6-5.0); SODIUM 144 mmol/L (132-148); TOTAL PROTEIN 5.8 g/dL (5.8-8.3)
[2017-06-21] MEDS: oxyCODONE 20 mg ER Tab (oxyCONTIN) PO SCH (09:29)
[2017-06-21] MEDS: Metoprolol Succinate 50 mg XL Tab PO SCH (09:30)
[2017-06-21] MEDS: POLYETHYLENE GLYCOL 3350 17 GM/Dose PACKET PO SCH (09:31)
[2017-06-21] MEDS ORDERED: Potassium Chloride 20 mEq ER Tab PO STA (10:07)
[2017-06-21] MEDS: cefTRIAXone 1 gm 1 GM/100 ML BAG IVPB SCH (11:14)
--- NOTE | 2017-06-21 13:22 | CP.PCM.DIS ---
<Kaden Johnston - Last Filed: 06/21/17 13:22> Provider - Provider Date of Admission: 06/13/17 21:32 Attending physician: Adilene Kaplan MD Primary care physician: PMD: Dr. Scotty June Consults: Urology: Dr. Byron Pierre Time Spent in preparation of Discharge (in minutes): 35 Hospital Course - Lab Results Lab Results: Micro Results 06/13/17 21:40 Blood Blood Culture - Final NO GROWTH AFTER 5 DAYS 06/13/17 21:40 Blood Gram Stain - Final TEST NOT PERFORMED Most Recent Lab Values WBC 4.8 10^3/ul (4.5-11.0) 06/21/17 07:50 RBC 3.23 10^6/uL (3.5-6.1) L 06/21/17 07:50 Hgb 10.2 g/dL (14.0-18.0) L 06/21/17 07:50 Hct 31.8 % (42.0-52.0) L 06/21/17 07:50 MCV 98.5 fl (80.0-105.0) 06/21/17 07:50 MCH 31.6 pg (25.0-35.0) 06/21/17 07:50 MCHC 32.1 g/dl (31.0-37.0) 06/21/17 07:50 RDW 15.9 % (11.5-14.5) H 06/21/17 07:50 Plt Count 206 10^3/uL (120.0-450.0) 06/21/17 07:50 MPV 10.6 fl (7.0-11.0) 06/21/17 07:50 Gran % 67.7 % (50.0-68.0) 06/17/17 06:15 Lymph % (Auto) 17.5 % (22.0-35.0) L 06/17/17 06:15 Nelson % (Auto) 13.1 % (1.0-6.0) H 06/17/17 06:15 Eos % (Auto) 1.5 % (1.5-5.0) 06/17/17 06:15 Baso % (Auto) 0.2 % (0.0-3.0) 06/17/17 06:15 Gran # 4.10 (1.4-6.5) 06/17/17 06:15 Lymph # 1.1 (1.2-3.4) L 06/17/17 06:15 Nelson # 0.8 (0.1-0.6) H 06/17/17 06:15 Eos # 0.1 (0.0-0.7) 06/17/17 06:15 Baso # 0.01 K/mm3 (0.0-2.0) 06/17/17 06:15 PT 14.2 SECONDS (9.4-12.5) H 06/13/17 19:00 INR 1.30 (0.93-1.08) H 06/13/17 19:00 APTT 35.5 Seconds (25.1-36.5) 06/13/17 19:00 pO2 56 mm/Hg (30-55) H 06/13/17 19:56 VBG pH 7.37 (7.32-7.43) 06/13/17 19:56 VBG pCO2 50.0 (40-60) 06/13/17 19:56 VBG HCO3 28.9 mmol/l (21-28) H 06/13/17 19:56 VBG Total CO2 30.4 mmol.L (22-28) H 06/13/17 19:56 VBG O2 Sat (Calc) 92.5 % (40-65) H 06/13/17 19:56 VBG Base Excess 2.7 mmol/L (0.0-2.0) H 06/13/17 19:56 VBG Potassium 3.6 mmol/L (3.6-5.2) 06/13/17 19:56 Sodium 138.0 mmol/L (132-148) 06/13/17 19:56 Chloride 104.0 mmol/L (98-107) 06/13/17 19:56 Glucose 110 mg/dl (75-110) 06/13/17 19:56 Lactate 0.8 mmol/L (0.7-2.1) 06/13/17 19:56 FiO2 21.0 % 06/13/17 19:56 Sodium 144 mmol/L (132-148) 06/21/17 07:50 Potassium 3.3 mmol/L (3.6-5.0) L 06/21/17 07:50 Chloride 106 mmol/L (98-107) 06/21/17 07:50 Carbon Dioxide 30 mmol/L (21-33) 06/21/17 07:50 Anion Gap 11 (10-20) 06/21/17 07:50 BUN 9 mg/dL (7-21) 06/21/17 07:50 Creatinine 0.9 mg/dL (0.8-1.5) 06/21/17 07:50 Est GFR ( Amer) > 60 06/21/17 07:50 Est GFR (Non-Af Amer) > 60 06/21/17 07:50 Random Glucose 100 mg/dL (70-110) 06/21/17 07:50 Hemoglobin A1c 6.0 % (4.2-6.5) 06/13/17 18:30 Calcium 8.4 mg/dL (8.4-10.5) 06/21/17 07:50 Phosphorus 3.2 mg/dL (2.5-4.5) 06/14/17 09:30 Magnesium 1.7 mg/dL (1.7-2.2) 06/20/17 06:30 Total Bilirubin 0.7 mg/dL (0.2-1.3) 06/21/17 07:50 AST 22 U/L (17-59) 06/21/17 07:50 ALT 30 U/L (7-56) 06/21/17 07:50 Alkaline Phosphatase 66 U/L (38-126) 06/21/17 07:50 Lactate Dehydrogenase 370 U/L (333-699) 06/13/17 18:30 Total Creatine Kinase 47 U/L (35-230) 06/13/17 18:30 Troponin I < 0.01 ng/mL 06/14/17 09:30 NT-Pro-B Natriuret Pep 888 pg/mL (0-450) H 06/17/17 06:15 Total Protein 5.8 g/dL (5.8-8.3) 06/21/17 07:50 Albumin 3.0 g/dL (3.0-4.8) 06/21/17 07:50 Globulin 2.8 gm/dL 06/21/17 07:50 Albumin/Globulin Ratio 1.1 (1.1-1.8) 06/21/17 07:50 Triglycerides 108 mg/dL (35-160) 06/13/17 18:30 Cholesterol 108 mg/dL (130-200) L 06/13/17 18:30 LDL Cholesterol Direct 56 mg/dL (0-129) 06/13/17 18:30 HDL Cholesterol 35 mg/dL (29-60) 06/13/17 18:30 Venous Blood Potassium 3.6 mmol/L (3.6-5.2) 06/13/17 19:56 Urine Color Red (YELLOW) 06/13/17 20:17 Urine Appearance Turbid (CLEAR) 06/13/17 20:17 Urine pH 6.5 (4.7-8.0) 06/13/17 20:17 Ur Specific [place] 1.025 (1.005-1.035) 06/13/17 20:17 Urine Protein >=300 mg/dL (<30 mg/dL) H 06/13/17 20:17 Urine Glucose (UA) Negative mg/dL (NEGATIVE) 06/13/17 20: Urine Ketones Negative mg/dL (NEGATIVE) 06/13/17 20:17 Urine Blood Large (NEGATIVE) H 06/13/17 20:17 Urine Nitrate Positive (NEGATIVE) H 06/13/17 20:17 Urine Bilirubin Negative (NEGATIVE) 06/13/17 20:17 Urine Urobilinogen 1.0 E.U./dL (<1 E.U./dL) H 06/13/17 20:17 Ur Leukocyte Esterase Moderate Lucretia/uL (NEGATIVE) H 06/13/17 20:17 Urine RBC Tntc /hpf (0-2) 06/13/17 20:17 Urine WBC 0 - 2 /hpf (0-6) 06/13/17 20:17 Ur Epithelial Cells 3 - 4 /hpf (0-5) 06/13/17 20:17 - Hospital Course Hospital Course: Patient is a 61 year old male with the past medical history of nephrolithiasis, 3 myocardial infarction (s/p stents), hypertension, abdominal anuerysm (s/p 2 repair surgeries), who came in with complaint of gross hematuria in conjunction with chest pain and shortness of breath for the past day. The patient reported burning pain upon urination that started in conjunction with the presenting symptoms. In the ED, workup was signficant for UA showing large blood and UTI. Pt was admitted for evaluation and treatment for chest pain, gross hematuria, and UTI. Plavix was held due to hematuria. Patient's pain 2/2 to h/o spinal surgery and pain was controlled. Medications were verified through his pharmacy in [place]. Troponins were negative x3. EKG was did not show evidence of acute MO. Cardio was consulted and recommended continuing patient's current cardiac medications. Urology was consulted. Sosa catheter was placed and with scheduled bladder irrigations. Pt could only tolerate irrigation with pain medications. Pt c/o of intermittant burning suprapubic pain when he felt the sensation to urinate. As shea blood per sosa continued, Urology performed cystoscopy with evaculation of clots. CBI was continued s/p cystoscopy. In the days following procedure, urine was dark yudith color without evidence of shea blood or clots. Sosa was discontinued and patient was monitored for any further hematuria. Today, patient was seen and examined at bedside. Pt denied any acute overnight events. Pt denied any hematuria. Pt was advised to follow up with his PMD and urologist apon return to [place]. Pt was also advised to resume plavix as instructed by urology. As the patient is hemodynamically stable and hematuria and CP resolved, he was discharged. - Date & Time of H&P Date of H&P: 06/14/17 Time of H&P: 00:38 Discharge Exam - Head Exam Head Exam: ATRAUMATIC, NORMAL INSPECTION, NORMOCEPHALIC - Eye Exam Eye Exam: EOMI, PERRL - Neck Exam Neck exam: Full Rom - Respiratory Exam Respiratory Exam: Clear to PA & Lateral, NORMAL BREATHING PATTERN - Cardiovascular Exam Cardiovascular Exam: REGULAR RHYTHM, +S1, +S2 - GI/Abdominal Exam GI & Abdominal Exam: Normal Bowel Sounds, Soft, Tenderness (suprapubic region bilateral ). absent: Distended, Guarding, Hyperactive Bowel Sounds, Hypoactive Bowel Sounds, Rigid - Exam Exam: Circumcision, NORMAL INSPECTION. absent: Scrotal Swelling, Testicular Tenderness External exam: absent: Ecchymosis, Erythema - Extremities Exam Extremities exam: full ROM, pedal pulses present - Back Exam Back exam: NORMAL INSPECTION - Neurological Exam Neurological exam: Alert, CN II-XII Intact, Normal Gait, Oriented x3 - Psychiatric Exam Psychiatric exam: Normal Affect, Normal Mood - Skin Skin Exam: Dry, Intact, Normal Color, Warm Discharge Plan - Discharge Medications Prescriptions: Diaper,Brief,Adult, Disposable [Adult Brief] 1 each MC PRN PRN #15 each PRN Reason: Incontinence Phenazopyridine [Pyridium] 200 mg PO PC #15 tab Tamsulosin [Flomax] 0.4 mg PO DAILY #15 cap - Follow Up Plan Condition: SERIOUS Disposition: HOME/ ROUTINE Instructions: Chest Pain (GEN), Urinary Tract Infection in Men (GEN), Kegel Exercises for Men (GEN), Acute Hematuria (GEN), Dysuria (GEN) Additional Instructions: 1. Follow up with PMD within 1 week 2. Follow up with urology within 1 week 3. Resume medications as prescribed 4. Take new medications as prescribed 5. Recommend Kegel exercises and adult diapers for incontinence 6. Incontinence should resolve within 4-5 days 7. Return to ED if symptoms worsen <Adilene Kaplan - Last Filed: 06/22/17 11:11> Provider - Provider Date of Admission: 06/13/17 21:32 Attending physician: Adilene Kaplan MD Hospital Course - Lab Results Lab Results: Micro Results 06/13/17 21:40 Blood Blood Culture - Final NO GROWTH AFTER 5 DAYS 06/13/17 21:40 Blood Gram Stain - Final TEST NOT PERFORMED Most Recent Lab Values WBC 4.8 10^3/ul (4.5-11.0) 06/21/17 07:50 RBC 3.23 10^6/uL (3.5-6.1) L 06/21/17 07:50 Hgb 10.2 g/dL (14.0-18.0) L 06/21/17 07:50 Hct 31.8 % (42.0-52.0) L 06/21/17 07:50 MCV 98.5 fl (80.0-105.0) 06/21/17 07:50 MCH 31.6 pg (25.0-35.0) 06/21/17 07:50 MCHC 32.1 g/dl (31.0-37.0) 06/21/17 07:50 RDW 15.9 % (11.5-14.5) H 06/21/17 07:50 Plt Count 206 10^3/uL (120.0-450.0) 06/21/17 07:50 MPV 10.6 fl (7.0-11.0) 06/21/17 07:50 Gran % 67.7 % (50.0-68.0) 06/17/17 06:15 Lymph % (Auto) 17.5 % (22.0-35.0) L 06/17/17 06:15 Nelson % (Auto) 13.1 % (1.0-6.0) H 06/17/17 06:15 Eos % (Auto) 1.5 % (1.5-5.0) 06/17/17 06:15 Baso % (Auto) 0.2 % (0.0-3.0) 06/17/17 06:15 Gran # 4.10 (1.4-6.5) 06/17/17 06:15 Lymph # 1.1 (1.2-3.4) L 06/17/17 06:15 Nelson # 0.8 (0.1-0.6) H 06/17/17 06:15 Eos # 0.1 (0.0-0.7) 06/17/17 06:15 Baso # 0.01 K/mm3 (0.0-2.0) 06/17/17 06:15 PT 14.2 SECONDS (9.4-12.5) H 06/13/17 19:00 INR 1.30 (0.93-1.08) H 06/13/17 19:00 APTT 35.5 Seconds (25.1-36.5) 06/13/17 19:00 pO2 56 mm/Hg (30-55) H 06/13/17 19:56 VBG pH 7.37 (7.32-7.43) 06/13/17 19:56 VBG pCO2 50.0 (40-60) 06/13/17 19:56 VBG HCO3 28.9 mmol/l (21-28) H 06/13/17 19:56 VBG Total CO2 30.4 mmol.L (22-28) H 06/13/17 19:56 VBG O2 Sat (Calc) 92.5 % (40-65) H 06/13/17 19:56 VBG Base Excess 2.7 mmol/L (0.0-2.0) H 06/13/17 19:56 VBG Potassium 3.6 mmol/L (3.6-5.2) 06/13/17 19:56 Sodium 138.0 mmol/L (132-148) 06/13/17 19:56 Chloride 104.0 mmol/L (98-107) 06/13/17 19:56 Glucose 110 mg/dl (75-110) 06/13/17 19:56 Lactate 0.8 mmol/L (0.7-2.1) 06/13/17 19:56 FiO2 21.0 % 06/13/17 19:56 Sodium 144 mmol/L (132-148) 06/21/17 07:50 Potassium 3.3 mmol/L (3.6-5.0) L 06/21/17 07:50 Chloride 106 mmol/L (98-107) 06/21/17 07:50 Carbon Dioxide 30 mmol/L (21-33) 06/21/17 07:50 Anion Gap 11 (10-20) 06/21/17 07:50 BUN 9 mg/dL (7-21) 06/21/17 07:50 Creatinine 0.9 mg/dL (0.8-1.5) 06/21/17 07:50 Est GFR ( Amer) > 60 06/21/17 07:50 Est GFR (Non-Af Amer) > 60 06/21/17 07:50 Random Glucose 100 mg/dL (70-110) 06/21/17 07:50 Hemoglobin A1c 6.0 % (4.2-6.5) 06/13/17 18:30 Calcium 8.4 mg/dL (8.4-10.5) 06/21/17 07:50 Phosphorus 3.2 mg/dL (2.5-4.5) 06/14/17 09:30 Magnesium 1.7 mg/dL (1.7-2.2) 06/20/17 06:30 Total Bilirubin 0.7 mg/dL (0.2-1.3) 06/21/17 07:50 AST 22 U/L (17-59) 06/21/17 07:50 ALT 30 U/L (7-56) 06/21/17 07:50 Alkaline Phosphatase 66 U/L (38-126) 06/21/17 07:50 Lactate Dehydrogenase 370 U/L (333-699) 06/13/17 18:30 Total Creatine Kinase 47 U/L (35-230) 06/13/17 18:30 Troponin I < 0.01 ng/mL 06/14/17 09:30 NT-Pro-B Natriuret Pep 888 pg/mL (0-450) H 06/17/17 06:15 Total Protein 5.8 g/dL (5.8-8.3) 06/21/17 07:50 Albumin 3.0 g/dL (3.0-4.8) 06/21/17 07:50 Globulin 2.8 gm/dL 06/21/17 07:50 Albumin/Globulin Ratio 1.1 (1.1-1.8) 06/21/17 07:50 Triglycerides 108 mg/dL (35-160) 06/13/17 18:30 Cholesterol 108 mg/dL (130-200) L 06/13/17 18:30 LDL Cholesterol Direct 56 mg/dL (0-129) 06/13/17 18:30 HDL Cholesterol 35 mg/dL (29-60) 06/13/17 18:30 Venous Blood Potassium 3.6 mmol/L (3.6-5.2) 06/13/17 19:56 Urine Color Red (YELLOW) 06/13/17 20:17 Urine Appearance Turbid (CLEAR) 06/13/17 20:17 Urine pH 6.5 (4.7-8.0) 06/13/17 20:17 Ur Specific [place] 1.025 (1.005-1.035) 06/13/17 20:17 Urine Protein >=300 mg/dL (<30 mg/dL) H 06/13/17 20:17 Urine Glucose (UA) Negative mg/dL (NEGATIVE) 06/13/17 20:17 Urine Ketones Negative mg/dL (NEGATIVE) 06/13/17 20:17 Urine Blood Large (NEGATIVE) H 06/13/17 20:17 Urine Nitrate Positive (NEGATIVE) H 06/13/17 20:17 Urine Bilirubin Negative (NEGATIVE) 06/13/17 20:17 Urine Urobilinogen 1.0 E.U./dL (<1 E.U./dL) H 06/13/17 20:17 Ur Leukocyte Esterase Moderate Lucretia/uL (NEGATIVE) H 06/13/17 20:17 Urine RBC Tntc /hpf (0-2) 06/13/17 20:17 Urine WBC 0 - 2 /hpf (0-6) 06/13/17 20:17 Ur Epithelial Cells 3 - 4 /hpf (0-5) 06/13/17 20:17 Attending/Attestation - Attestation I have personally seen and examined this patient.: Yes I have fully participated in the care of the patient.: Yes I have reviewed all pertinent clinical information, including history, physical exam and plan: Yes Notes (Text): 06/22/17 11:06 Patient was seen and examined with medical record consultant. Agreed with resident assessment and plan. 61 yrs old male with PMH of CAD,htn,Hyperlipidemia, PVD was admitted with hematuria,He was treated with bladder irrigation.Plavix was on hold. He is SP cystoscoscopy, no further hematuria., Folley catheter was discontinued yesterday.He is able to void, has intermittent dribling of urine after prolong catherization.This was discussed in detail with him.The need of close follow up with Urologist was discussed in detail.Patient bladder spasms are improving.His hemoglobin is stable.He will be restarted on his plavix for his CAD as recommended by Urology. Patient is afebrile, he is ambulatory at the time of discharge. Management plan was discussed in detail with patient Education was provided.
[2017-06-21 14:03] VITALS: BP 143/78; PULSE 60; RESP 16; TEMP 98.5
--- NOTE | 2017-07-11 04:06 | PN ---
DATE: 06/15/2017 UROLOGY DAILY PROGRESS NOTE SUBJECTIVE: See the previously dictated consult notes and procedure notes. The patient is currently resting with Galdamez catheter in place, he is though, somewhat uncomfortable. No other changes. PAST MEDICAL AND SURGICAL HISTORY: No change. PHYSICAL EXAMINATION: Galdamez catheter in place. DIAGNOSES: Gross hematuria and urinary retention. PLAN: As follows: Continue the Galdamez catheter. We are discussing the timing for workup, we are planning for a cystoscopy for Friday, on 06/16/2017, depending on the patient's course. Patient may also be discharged if he is stabilizing, but now he states there is no way he could leave the Galdamez, so we are going to leave the Galdamez for now. We are trying to perform a cystoscopy on Friday,06/16/2017. Sloan Pierre MD
--- NOTE | 2017-07-11 06:27 | PN ---
DATE: 06/21/2017 SUBJECTIVE: See the previously dictated notes. The patient is now feeling somewhat better, the Galdamez catheter is still in place. He is beginning to drain clear urine. We will discuss the planning for its removal; however, patient asked to keep the catheter in now, because he is concerned about not being able to void. PAST MEDICAL AND SURGICAL HISTORY: No change. PHYSICAL EXAMINATION: No real change. Galdamez catheter in place and draining better. DIAGNOSES: Urinary retention and gross hematuria. PLAN: As follows: We are going to plan for a voiding trial; today, I will discuss with the patient in detail, and then if the patient is okay, we will plan for a subsequent discharge. The patient will require followup with a urology specialist. He is planning to go back home for this, and followup there as well. Sloan Pierre MD
--- NOTE | 2017-07-11 07:55 | PN ---
UROLOGY PROGRESS NOTE DATE: 06/19/2017 SUBJECTIVE: This is a very pleasant gentleman, see the previously dictated notes. There is a consult from 06/14 and a Galdamez catheter insertion done on 06/14. We have multiple progress notes 06/15,06/16, 06/18 and 06/19, that is today. We also have a procedure note of cystotomy and that is from 06/17. The patient has currently clear urine and we had given him a voiding trial and he was able to void. FINAL DIAGNOSIS: Gross hematuria. We discussed about elevated PSA. We discussed voiding dysfunction. We discussed the prostate, the bladder. We will need points of upper tract imaging, and mostly emphasized to the patient the importance of followup with his urologist to rule out malignancy because at this point, we have not found any malignancy, but I am still always concerned with his presentation that he would have malignancy. Also, I have explained to the patient the potential of masking something because he is taking so much narcotics. He gets very vocal by the concept of narcotic abuse. He does not wish to discuss it, but I discussed it at length with the patient my concerns not about narcotic abuse per se, but use of narcotics, and therefore, masking some of his other symptoms. I have very strongly, pain management and therapy. From the urology standpoint, at this point, we are signing off; the patient will be discharged but I explained to him in no uncertain terms that he needs followup with his urologist. He says he is planning to go to his doctor when back in [place]. Sloan Pierre MD
--- NOTE | 2017-07-11 09:41 | CON ---
DATE: 06/14/2017 UROLOGY CONSULTATION REASON FOR CONSULTATION: Gross hematuria. HISTORY OF PRESENT ILLNESS: Mr. Suresh is a pleasant 61-year-old gentleman. He actually was admitted through the ER and he is under the care of . He actually is originally from [place], but now lives in [facility]. He was here visiting his mother. She is in the ICU and then he developed gross hematuria and urinary retention, Urology consulted, see as below. PAST MEDICAL AND SURGICAL HISTORY: He has multiple medical issues. The patient is on blood thinners. The patient also has a history of seeing Pain Management for various pains and aches. Multiple surgical procedures and multiple VATS procedure. Urology is consulted regarding gross hematuria. No history of NV or CVA. REVIEW OF SYSTEMS: As mentioned above. There is no weight loss, chest pain or shortness of breath. What is mentioned above is the patient has chronic pain with any kind of movements. . PHYSICAL EXAMINATION: GENERAL: A well-nourished male, in no apparent distress. VITAL SIGNS: Within normal limits. ABDOMEN: The abdomen is difficult to evaluate, but it feels grossly distended, see below (inserted Galdamez catheter with a large volume). GENITOURINARY: He has a normal male phallus. RECTAL: Deferred by the patient's preference. LABORATORY DATA: See chart. DIAGNOSES: Urinary retention, gross hematuria, and voiding dysfunction. PLAN: At this time, we inserted a Galdamez catheter, see separately dictated procedure note at the bedside. We discussed options. The patient is extremely at this point unhappy with the fact that the Galdamez catheter is in, but I think volume is greater than 500 mL and blood tinged urine. I am very concerned that this patient is going back into retention so i have asked them to keep the catheter for now. We will provide analgesics. So the diagnosis is gross urinary retention. PLAN: Galdamez catheter straight drainage. Further plan is we need to rule out malignancy. He will need a cystoscopy whether we do it here in the hospital or whether we do it when he goes back home because his plan mother is going home as well as him. We will have to discuss all this, but for now, leave the Galdamez catheter in place. Thank you for the urology consultation. ADDENDUM: See the separately dictated note on 06/14/2017 with Galdamez catheter insertion. Again prior to inserting Galdamez catheter, I explained to the patient what we are doing to do. It was my concern that this may hurt, so we used 2 tubes of 2% lidocaine jelly and we were able to insert Galdamez catheter without difficulty, but he was still somewhat uncomfortable, please see the plans, and we will provide lidocaine and some analgesics and some Pyridium. Sloan Pierre MD
--- NOTE | 2017-07-11 09:44 | PROCN ---
UROLOGY BEDSIDE PROCEDURE NOTE DATE: 06/14/2017 PREOPERATIVE DIAGNOSES Urinary retention, gross hematuria. POSTOPERATIVE DIAGNOSES Urinary retention, gross hematuria. PROCEDURE: Insertion of Galdamez catheter with the use of lidocaine jelly. I would also want to mention that we gave the patient some Dilaudid. He received about a milligram (he states it started to hold him). Under sterile technique, after explaining the patient what I was planning to do, I prepped the patient in usual sterile technique. I inserted Galdamez catheter via the urethra. We had provided the patient 2 tubes of lidocaine because he was so worried that it was going to hurt him. We emptied about 500 mL of urine with some blood-tinged urine, but definitely in proper location. in place and irrigated it. The patient tolerated the bedside procedure well. See again the note. The plan is Galdamez to straight drainage and not to remove it for now and provide analgesics as appropriate. Sloan Pierre MD
--- NOTE | 2017-07-11 09:45 | OP ---
PROCEDURE DATE: 06/17/2017 PREOPERATIVE DIAGNOSES: Gross hematuria, voiding dysfunction and tremendous amount of clots. POSTOPERATIVE DIAGNOSES: Gross hematuria, voiding dysfunction and tremendous amount of clots. PROCEDURE: Cystoscopy, evacuation of clots. COMPLICATIONS: There were no complications. SPECIMENS: No specimens. We left the patient with Galdamez catheter with a mild traction. INDICATION: See history and physical, consultation, and multiple progress notes. The patient still has gross hematuria. Because he is a poor surgical candidate and high-risk patient, Anesthesia was very hesitant to provide heavy dosing. Even though it is an emergency, we with lidocaine jelly with the anesthesia provided. DESCRIPTION OF PROCEDURE: After obtaining informed consent, the patient was placed on the table, routine monitors were placed. Time-out was called to confirm the patient positioning, etc. The patient is already on antibiotics and we inserted the via the urethra, we evacuated good number of clots and then the patient was fairly okay with this. We then did not see any bladder tumors, otherwise. We inserted Galdamez catheter via the urethra and put a mild traction and CBI. The patient tolerated this without complication. ADDENDUM: The plan will be to monitor the patient closely. get the catheter out as quickly as possible, so he will be able to be discharged. Sloan Pierre MD
--- NOTE | 2017-07-11 09:45 | PN ---
DATE: 06/16/2017 SUBJECTIVE: See previously dictated notes starting on 06/14, 06/15, 06/16. The patient was scheduled for a cystoscopy evaluation , however, the OR has many emergencies today and they are running over schedule. The patient does no longer want to wait. He wants , so the plan is to see the patient currently and to make arrangements for a cystoscopy for 06/17. Risks and benefits explained this in great detail to the patient and no other major changes. Sloan Pierre MD
== END 2017-06-21 15:42 | disposition home or self-care (01) | DRG 690 ==
LOC: ED 17:58 → ERH 21:32 → 2RSO 06-14 00:13
PROVIDERS: ADMIT Internal Medicine; ATTEND Internal Medicine
PROC: 0TCB8ZZ Extirpation of Matter from Bladder, Via Natural or Artificial Opening Endoscopic (ICD-10-PCS; principal; 2017-06-17 15:30)
DX: N13.6 Pyonephrosis (principal); R16.0 Hepatomegaly, not elsewhere classified; N32.89 Other specified disorders of bladder; R07.9 Chest pain, unspecified; I25.2 Old myocardial infarction; I12.9 Hypertensive chronic kidney disease with stage 1 through stage 4 chronic kidney disease, or unspecified chronic kidney disease; E78.5 Hyperlipidemia, unspecified; D64.9 Anemia, unspecified; R31.0 Gross hematuria; E87.6 Hypokalemia; F17.200 Nicotine dependence, unspecified, uncomplicated; I25.10 Atherosclerotic heart disease of native coronary artery without angina pectoris; I73.9 Peripheral vascular disease, unspecified; N18.9 Chronic kidney disease, unspecified; N40.0 Benign prostatic hyperplasia without lower urinary tract symptoms; Z79.02 Long term (current) use of antithrombotics/antiplatelets; Z79.899 Other long term (current) drug therapy; Z86.79 Personal history of other diseases of the circulatory system; Z87.442 Personal history of urinary calculi; Z95.5 Presence of coronary angioplasty implant and graft; F41.9 Anxiety disorder, unspecified; F32.89 Other specified depressive episodes